=== PATIENT | female | born 1985 | race American Indian/Alaskan Native ===

== ENCOUNTER 2018-04-20 14:20 | Inpatient (IN) | payer MEDICAID ==
--- NOTE | 2018-04-20 16:00 | Emergency Department Report ---
Chief Complaint: Urogenital-Female Stated Complaint: LEAKING FLUID Time Seen by Provider: 04/20/18 15:55 - HPI History of Present Illness: 32-year-old female presents to the emergency department with a complaint of some leaking of fluid from the vagina while . The patient is about [address] 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 She says she was taking a shower when she noticed some of the fluid leaking. When she was sitting on the toilet she felt like there was more fluid than there was urine. She has some mild abdominal discomfort. No fever, nausea, vomiting. She denies any gross vaginal bleeding but says that she thought there was a tinge of blood to the vaginal fluid. - ROS Review of Systems: Positive for abdominal discomfort, leaking vaginal fluid and questionable bleeding Negative for fever, nausea, vomiting, back pain, dysuria, vaginal discharge - Exam Vital Signs: Vital Signs 04/20/18 14:45 Temperature 99 F Pulse Rate 76 Respiratory 18 Rate Blood Pressure 137/83 O2 Sat by Pulse 100 Oximetry Physical Exam: Patient is awake and alert and in no acute distress. No tenderness to palpation of the abdomen. MSE screening note: Focused history and physical exam performed. Due to findings the following was ordered: She will have a CBC, BMP, type and screen for RhoGAM, urinalysis and a ultrasound. ED Disposition for MSE Condition: Stable Referrals: RANDI LANDRUM MD [Primary Care Provider] - 3-5 Days
[2018-04-20 16:48] LABS: Basophils % (Auto) 0.2 % (0.0-1.8); Eosinophils # (Auto) 0.1 K/mm3 (0.0-0.4); Eosinophils % (Auto) 0.6 % (0.0-4.3); Hematocrit 32.2 % (30.3-42.9); Hemoglobin 10.6 gm/dl (10.1-14.3); Lymphocytes # (Auto) 1.9 K/mm3 (1.2-5.4); Mean Corpuscular HGB Conc 33 % (30-34); Mean Corpuscular Hemoglobin 27 pg (28-32); Mean Corpuscular Volume 83 fl (79-97); Monocytes # (Auto) 0.6 K/mm3 (0.0-0.8); Platelet Count 203 K/mm3 (140-440); Red Blood Count 3.86 M/mm3 (3.65-5.03); Red Cell Distribution Width 18.3 % (13.2-15.2)
[2018-04-20 16:54] LABS: BUN/Creatinine Ratio 10; Blood Urea Nitrogen 4 mg/dL (7-17); Calcium 9.3 mg/dL (8.4-10.2); Hemolysis Index 0
[2018-04-20 16:54] LABS: Bacteria,Urine 1+ /HPF (Negative); Bilirubin,Urine NEG (Negative); Blood,Urine MOD (Negative); Color,Urine Yellow (Yellow); Protein,Urine <15 mg/dL mg/dL (Negative); Urobilinogen,Urine < 2.0 mg/dL (<2.0); WBC,Urine < 1.0 /HPF (0.0-6.0)
[2018-04-20 16:57] LABS: HCG Qualitative,Urine Positive (Negative)
--- NOTE | 2018-04-20 18:01 | Ultrasound Report ---
FINAL REPORT EXAM: US OB > = 14 WEEKS FETUS HISTORY: abd pain, , leaking vaginal fluid TECHNIQUE: Ultrasound obstetrical transabdominal PRIORS: None. FINDINGS: There is severe oligohydramnios. Essentially no amniotic fluid identified There is single live intrauterine gestation with cardiac activity 159 beats per minute. Cervical length is 0.5 centimeters The placenta is posterior. biometric measurements were obtained Biparietal diameter 17 weeks 3 days Head circumference 18 weeks 5 days abdominal circumference 18 weeks 2 days Femur length 18 weeks 2 days Based on today's exam estimated weight is 234 grams. Estimated composite gestational age 18 weeks 1 day with estimated date of delivery September 20, 2018 Multiple uterine fibroids are noted largest 5.5 centimeters IMPRESSION: Severe oligohydramnios. Essentially no amniotic fluid identified Single live intrauterine gestation estimated at 18 weeks 1 day Multiple uterine fibroids noted
--- NOTE | 2018-04-20 19:02 | Emergency Department Report ---
HPI - General Chief Complaint: Urogenital-Female Time Seen by Provider: 04/20/18 15:55 - HPI HPI: 32-year-old female presents to the emergency department with a complaint of some leaking of fluid from the vagina while . 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 She says she was taking a shower when she noticed some of the fluid leaking. When she was sitting on the toilet she felt like there was more fluid than there was urine. She has some mild abdominal discomfort. No fever, nausea, vomiting. She denies any gross vaginal bleeding but says that she thought there was a tinge of blood to the vaginal fluid. ED Past Medical Hx - Past Medical History Previous Medical History?: Yes Additional medical history: uterine fibroids - Surgical History Past Surgical History?: Yes Additional Surgical History: , D&C - Social History Smoking Status: Never Smoker Substance Use Type: None ED Review of Systems ROS: Stated complaint: LEAKING FLUID Other details as noted in HPI Comment: All other systems reviewed and negative Constitutional: denies: chills, fever Eyes: denies: eye pain, eye discharge, vision change ENT: denies: ear pain, throat pain Respiratory: denies: cough, shortness of breath, wheezing Cardiovascular: denies: chest pain, palpitations Gastrointestinal: abdominal pain. denies: vomiting Genitourinary: other (vaginal leakage of clear fluid). denies: dysuria Musculoskeletal: denies: back pain, joint swelling, arthralgia Skin: denies: rash, lesions Neurological: denies: headache, weakness, paresthesias Physical Exam - Physical Exam Vital Signs: Vital Signs 04/20/18 14:45 Temperature 99 F Pulse Rate 76 Respiratory 18 Rate Blood Pressure 137/83 O2 Sat by Pulse 100 Oximetry Physical Exam: GENERAL: The patient is well-developed well-nourished. HENT: Normocephalic. Atraumatic. Patient has moist mucous membranes. EYES: Extraocular motions are intact. NECK: Supple. Trachea is midline. CHEST/LUNGS: Clear to auscultation. There is no respiratory distress noted. HEART/CARDIOVASCULAR: Regular. There is no tachycardia. There is no murmur. ABDOMEN: Abdomen is soft, nontender. Patient has normal bowel sounds. Gravid uterus is palpable in the lower abdomen. SKIN: Skin is warm and dry. NEURO: The patient is awake, alert, and oriented. The patient is cooperative. The patient has no focal neurologic deficits. The patient has normal speech. MUSCULOSKELETAL: There is no tenderness or deformity. There is no limitation range of motion. There is no evidence of acute injury. ED Course Vital Signs 04/20/18 14:45 Temperature 99 F Pulse Rate 76 Respiratory 18 Rate Blood Pressure 137/83 O2 Sat by Pulse 100 Oximetry - Consultations Consultation #1: 04/20/18 19:[address] Burden, who is on-call for Dr. Mccarthy, regarding the patient's ultrasound findings of oligohydramnios. She came and saw the patient in the emergency department. At first the patient had decided that she would rather be discharged home and face a miscarriage at home. However she started having abdominal and back pain and changed her mind and Dr. Burden will admit her to mother baby where they will most likely induce the miscarriage. 04/20/18 19:10 ED Medical Decision Making - Lab Data Result diagrams: 04/20/18 16:24 04/20/18 16:24 - Radiology Data Radiology results: report reviewed EXAM: US OB gt; = 14 WEEKS FETUS HISTORY: abd pain, , leaking vaginal fluid TECHNIQUE: Ultrasound obstetrical transabdominal PRIORS: None. FINDINGS: There is severe oligohydramnios. Essentially no amniotic fluid identified There is single live intrauterine gestation with cardiac activity 159 beats per minute. Cervical length is 0.5 centimeters The placenta is posterior. biometric measurements were obtained Biparietal diameter 17 weeks 3 days Head circumference 18 weeks 5 days abdominal circumference 18 weeks 2 days Femur length 18 weeks 2 days Based on today's exam estimated weight is 234 grams. Estimated composite gestational age 18 weeks 1 day with estimated date of delivery September 20, 2018 Multiple uterine fibroids are noted largest 5.5 centimeters IMPRESSION: Severe oligohydramnios. Essentially no amniotic fluid identified Single live intrauterine gestation estimated at 18 weeks 1 day Multiple uterine fibroids noted Transcribed By: KRIS Dictated By: FRANCISCA PEREZ MD Electronically Authenticated By: FRANCISCA PEREZ MD Signed Date/Time: 04/20/18 3640 - Medical Decision Making Patient came in with complaint of leaking clear fluid and she felt as if her water had broken, although all about 18 weeks . Labs were unremarkable. However the ultrasound does show oligohydramnios. She was seen by the [facility] S[facility] service in the emergency department. The patient at first wanted to be discharged home but then changed her mind and will be admitted to the OB/ [facility] service. - Differential Diagnosis , threatened miscarriage, spontaneous miscarriage, fibroids Critical Care Time: No Critical care attestation.: If time is entered above; I have spent that time in minutes in the direct care of this critically ill patient, excluding procedure time. ED Disposition Clinical Impression: Threatened Oligohydramnios Qualifiers: Fetus number: single or unspecified fetus Trimester: second trimester Qualified Code(s): O41.02X0 - Oligohydramnios, second trimester, not applicable or unspecified Qualifiers: Weeks of gestation: 14 weeks Qualified Code(s): Z3A.14 - 14 weeks gestation of Disposition: OP ADMIT IP TO THIS HOSP Is pt being admited?: Yes Condition: Fair Instructions: Threatened Miscarriage (ED), Uterine Fibroids (ED) Referrals: RANDI LANDRUM MD [Primary Care Provider] - 3-5 Days Time of Disposition: 19:03
--- NOTE | 2018-04-20 19:03 | Event Note ---
Date: 04/20/18 This is a 32-year-old female 7 para 4, ANDER 09/17/2018 which places her estimated gestational age at 18 weeks 4 days. Her gestational age is based on a seven-week crown-rump length performed in our office on 02/04/2018. She presented to the emergency room complaining of leaking fluid. She denies bleeding, pain, contractions fever or chills. Abdomen is nontender. Speculum exam revealed fluid in the vagina, cervix appears closed and long. Ultrasounds consistent with patient's history and exam. Patient's is significant for advanced maternal age at the time of delivery, uterine fibroids and recently she completed second trimester genetic screening that revealed the fetus may be at increased risk for Down syndrome. Options reviewed patient initially desired discharge home with follow-up with the day habilitation specialist that was scheduled for Sunday. However while preparing discharge instructions received a call from Dr. Charles stating patient is now having severe pain and desires admission and delivery.
[2018-04-20] MEDS ORDERED: MINERAL OIL PO PRN (19:11)
[2018-04-20] MEDS ORDERED: ePHEDrine SULFATE IV PRN (19:11)
[2018-04-20] MEDS ORDERED: BRETHINE IVP PRN (19:11)
[2018-04-20] MEDS ORDERED: BRETHINE SUB-Q PRN (20:00)
[2018-04-20] MEDS ORDERED: LACTATED RINGERS 1,000 ML IV SCH (20:00)
[2018-04-20] MEDS ORDERED: XYLOCAINE 2% INFILTRATI ONE (20:00)
[2018-04-20] MEDS ORDERED: CYTOTEC VG ONE (20:00)
[2018-04-20] MEDS ORDERED: PITOCin/NS 20 UNIT/1000ML DRIP 20 UNITS/1,000 ML BAG IV SCH (20:00)
--- NOTE | 2018-04-20 23:28 | History and Physical Report ---
History of Present Illness Date of examination: 04/20/18 Date of admission: 04/20/18 19:11 History of present illness: Past History : 7 # 1 Delivery date: 2001 Weeks Gestation: 8 Delivery type: SAB Comments: D&C don3 # 2 Delivery date: 11/20/2002 Weeks Gestation: 35 labor: no Delivery type: Hours of labor: 18 Anesthesia type: epidural Delivery location: [place] Sex: Female weight: 5-13 Name: Chandlershani Comments: Labor induction for pre-eclampsia # 3 Delivery date: 11/12/2003 Weeks Gestation: 37 labor: no Delivery type: Hours of labor: 8 Anesthesia type: IV Delivery location: [place] Infant Sex: Male weight: 6-13 Name: Luiz # 4 Delivery date: 10/09/2005 Weeks Gestation: 38 labor: no Delivery type: Hours of labor: 8 Anesthesia type: epidural Delivery location: [place] Sex: Male weight: 6-9 Name: Radha # 5 Delivery date: 2007 Weeks Gestation: 4-6 Delivery type: SAB Comments: No D&C # 6 Delivery date: 08/31/2009 Weeks Gestation: 37 Delivery type: Anesthesia type: epidural Delivery location: [place] Infant Sex: Male weight: 6-7 Name: Eliot Comments: Failed induction pre-eclampsia Failure of descent 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 Past Surgical History: (2008) Family History Summary: Other family member - Has No Family History of Ovarvian Cancer - Entered On: 02/04 Other family member - Has No Family History of Breast Cancer - Entered On: 2017 Other family member - Has Family History of Hypertension - Entered On: 02/04/2018 Other family member - Has Family History of Diabetes - Entered On: 02/04/2018 Other family member - Has Family History of CVA or Stroke - Entered On: 02/04/2018 Other family member - Has Family History of Coronary Heart Disease - Entered On : 02/04/2018 Other family member - Has Family History Colon Cancer - Entered On: 02/04/2018 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 Risk Factors: Smoked Tobacco Use: Current every day smoker Cigarettes: Yes -- 1/2 pack(s) per day, Year started: 1999 Counseled to quit/cut down: yes Drug use: no Alcohol use: yes Drinks per day: 1 Dietary Counseling: pn yes Past Medical History 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): (2008) Abnormal PAP: positive, cxbx normal Uterine Anomaly: negative Social Hx: 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 Infection History Hx of STD: Trichomonas Genetic History Congenital Heart Defect: Mom: yes Dad: no Comments: nephew Daisha Disease: Mom: no Dad: no Thalassemia Mom: no Dad: no Neural Tube Defect Mom: no Dad: no Down's Syndrome Mom: yes Dad: no Pastor-Sachs Mom: no Dad: no Sickle Cell Disease/Trait Mom: yes Dad: no Hemophilia Mom: no Dad: no Muscular Dystrophy Mom: no Dad: no Cystic Fibrosis Mom: no Dad: no [place] Chorea Mom: no Dad: no Mental Retardation Mom: no Dad: no Fragile X Mom: no Dad: no Other Genetic/Chromosomal Disorder Mom: no Dad: no Child w/other defect Mom: no Dad: no Enviromental Exposures Xray Exposure: no Medication, drug, or alcohol use since LMP: no Chemical/Other Exposure: no Exposure to Cat Liter: no Hx of Parvovirus (Fifth Disease): no Current Allergies (reviewed today): * CATS (Critical) * MOLDS (Critical) LORTAB (HYDROCODONE-ACETAMINOPHEN TABS) (Critical) * DOGS (Critical) Past History - Obstetrical History Expected Date of Delivery: 09/17/18 Actual Gestation: 18 Week(s) 4 Day(s) : 7 Medications and Allergies Allergies Allergy/AdvReac Type Severity Reaction Status Date / Time No Known Allergies Allergy Unverified 04/20/18 18:08 Home Medications Medication Instructions Recorded Confirmed Last Taken Type Aspirin [Aspir-Low] 81 mg PO DAILY 04/20/18 04/20/18 1 Day Ago History ~04/19/18 Vit No.130/Iron/Folic 1 each PO DAILY 04/20/18 04/20/18 1 Day Ago History [ Tablet] ~04/19/18 Active Meds: Active Medications Ephedrine Sulfate (Ephedrine Sulfate) 10 mg IV Q2M PRN PRN Reason: Hypotension Lactated Ringer's (Lactated Ringers) 1,000 mls @ 125 mls/hr IV DIRECT NENITA Oxytocin/Sodium Chloride (Pitocin/Ns 20 Unit/1000ml Drip) 20 units in 1,000 mls @ 125 mls/hr IV DIRECT NENITA Mineral Oil (Mineral Oil) 30 ml PO QHS PRN PRN Reason: Constipation Terbutaline Sulfate (Brethine) 0.25 mg SUB-Q ONCE PRN PRN Reason: Hyperstimulation/Hypertonicity Terbutaline Sulfate (Brethine) 0.25 mg IVP ONCE PRN PRN Reason: Hyperstimulation/Hypertonicity Review of Systems All systems: negative Genitourinary: leakage of fluid - Vital Signs Vital signs: Vital Signs Temp Pulse Resp BP Pulse Ox 99 F 76 18 137/83 100 04/20/18 14:45 04/20/18 14:45 04/20/18 14:45 04/20/18 14:45 04/20/18 14:45 Temp Pulse Resp BP Pulse Ox 97.8 F 67 20 132/71 100 04/20/18 21:30 04/20/18 21:55 04/20/18 21:30 04/20/18 21:52 04/20/18 21:55 - Physical Exam Breasts: Positive: deferred Cardiovascular: Regular rate Lungs: Positive: Normal air movement Abdomen: Positive: normal appearance, soft. Negative: tenderness Genitourinary (Female): Positive: normal external genitalia, normal perenium Vulva: both: normal Extremities: Positive: normal - Obstetrical Cervical Dilatation: 1 Results Result Diagrams: 04/20/18 16:24 04/20/18 16:24 Abnormal lab results 04/20/18 04/20/18 04/20/18 Range/Units 16:04 16:24 16:24 MCH 27 L (28-32) pg RDW 18.3 H (13.2-15.2) % Seg Neutrophils % 74.2 H (40.0-70.0) % BUN 4 L (7-17) mg/dL Creatinine 0.4 L (0.7-1.2) mg/dL Urine HCG, Qual Positive A (Negative) All other labs normal. Ultrasound: report reviewed, image reviewed Assessment and Plan She was informed at this EGA the fetus is not viable. It is rare that with ROM at this EGA that GRABIEL will normalize and she will mostly become infected in the next 1-2weeks, Options again discussed, risks for maternal infection with observation explained. She was informed the fibroid in the AJIT may obstruct delivery. She was informed D&E is not performed at this facility and she would need to go to [place] or [place] if she desires that procedure. She desires observation tonight with reUS for GRABIEL in AM. Will also recheck CBC in am as well. - Patient Problems (1) 18 weeks gestation of Current Visit: Yes Status: Acute (2) membranes, rupture Current Visit: Yes Status: Acute (3) Oligohydramnios Current Visit: Yes Status: Acute Qualifiers: Fetus number: single or unspecified fetus Trimester: second trimester Qualified Code(s): O41.02X0 - Oligohydramnios, second trimester, not applicable or unspecified (4) Uterine fibroids affecting in second trimester Current Visit: Yes Status: Acute (5) Cystic fibrosis carrier Current Visit: Yes Status: Acute (6) Abnormal genetic test during Current Visit: Yes Status: Acute Plan to address problem: Quad +for increased risk for Down syndrome, she was informed today
--- NOTE | 2018-04-21 07:08 | Ultrasound Report ---
FINAL REPORT PROCEDURE: US OB LIMITED TECHNIQUE: Real-time limited sonographic examination was performed for evaluation of amniotic fluid for each fetus with image documentation (1 or more fetuses). CPT 46283 HISTORY: GRABIEL COMPARISON: 04/20/2018 FINDINGS: There is a single fetus in a transverse position. heart rate 149 beats per minute. No amniotic fluid is identified on this study. This is consistent with severe oligohydramnios. IMPRESSION: No measurable amniotic fluid is seen on this study. This is consistent with severe oligohydramnios and has not changed since prior exam.
[2018-04-21 07:54] LABS: Basophils % (Auto) 0.2 % (0.0-1.8); Eosinophils # (Auto) 0.1 K/mm3 (0.0-0.4); Eosinophils % (Auto) 0.8 % (0.0-4.3); Hematocrit 31.7 % (30.3-42.9); Hemoglobin 10.5 gm/dl (10.1-14.3); Lymphocytes % (Auto) 20.1 % (13.4-35.0); Mean Corpuscular HGB Conc 33 % (30-34); Mean Corpuscular Hemoglobin 28 pg (28-32); Mean Corpuscular Volume 84 fl (79-97); Monocytes # (Auto) 0.7 K/mm3 (0.0-0.8); Monocytes % (Auto) 6.6 % (0.0-7.3); Platelet Count 194 K/mm3 (140-440); Red Blood Count 3.78 M/mm3 (3.65-5.03); Red Cell Distribution Width 18.4 % (13.2-15.2)
--- NOTE | 2018-04-21 10:48 | Progress Note ---
Assessment and Plan - Patient Problems (1) 18 weeks gestation of Current Visit: Yes Status: Acute (2) membranes, rupture Current Visit: Yes Status: Acute Plan to address problem: Inevitable AB. US and CBC reviewed with patient. Discussed minimal chance of progressing to viability/survivability with no fluid. Explained fluid is need to mature lungs and mostly likely she will develop an infection that could be fatal and decrease her fertility. No s/s infection at this time, however she now desires w/ proceed with delivery. She was informed induction may fail d/t fibroids and she may require hysterotomy. She declines referral for D&E at this time. Cytotec induction explained. Questions were encouraged and answered. Will allow shower then start induction. She voiced understanding and agrees with plan of care. (3) Oligohydramnios Current Visit: Yes Status: Acute Qualifiers: Fetus number: single or unspecified fetus Trimester: second trimester Qualified Code(s): O41.02X0 - Oligohydramnios, second trimester, not applicable or unspecified (4) Uterine fibroids affecting in second trimester Current Visit: Yes Status: Acute (5) Cystic fibrosis carrier Current Visit: Yes Status: Acute (6) Abnormal genetic test during Current Visit: Yes Status: Acute (7) AMA (advanced maternal age) multigravida 35+ Current Visit: Yes Status: Acute Subjective - Subjective Date of service: 04/21/18 Principal diagnosis: IUP@18weeks, inevitable ab Interval history: No complaints Patient reports: no new complaints Objective - Vital Signs Vital Signs: Vital Signs - 12hr 04/21/18 04/21/18 04/21/18 00:15 04:15 06:15 Temperature 98.9 F 98.6 F 98.8 F Pulse Rate 94 H Respiratory 18 Rate Blood Pressure Blood Pressure 129/86 [Left] 04/21/18 04/21/18 04/21/18 07:35 09:32 09:35 Temperature 98.9 F 98.3 F Pulse Rate 80 Respiratory 18 18 Rate Blood Pressure 123/65 Blood Pressure [Left] - Exam Breasts: deferred Lungs: Normal air movement Abdomen: Present: normal appearance (obese), soft. Absent: tenderness Vulva: both: normal Cervical Dilatation: 1 Cervical Effacement Percentage: 0 station: -4 - Labs Labs: Abnormal Labs 04/20/18 04/20/18 04/20/18 16:04 16:24 16:24 MCH 27 L RDW 18.3 H Seg Neutrophils % 74.2 H BUN 4 L Creatinine 0.4 L Urine HCG, Qual Positive A 04/21/18 07:10 MCH RDW 18.4 H Seg Neutrophils % 72.3 H BUN Creatinine Urine HCG, Qual Laboratory Results - last 24 hr 04/20/18 04/20/18 04/20/18 16:04 16:24 16:24 WBC 9.8 RBC 3.86 Hgb 10.6 Hct 32.2 MCV 83 MCH 27 L MCHC 33 RDW 18.3 H Plt Count 203 Lymph % (Auto) 19.0 Mcdonald % (Auto) 6.0 Eos % (Auto) 0.6 Baso % (Auto) 0.2 Lymph # 1.9 Mcdonald # 0.6 Eos # 0.1 Baso # 0.0 Seg Neutrophils % 74.2 H Seg Neutrophils # 7.3 Sodium 141 Potassium 3.9 Chloride 100.4 Carbon Dioxide 27 Anion Gap 18 BUN 4 L Creatinine 0.4 L Estimated GFR > 60 BUN/Creatinine Ratio 10 Glucose 89 Calcium 9.3 Urine Color Yellow Urine Turbidity Clear Urine pH 7.0 Ur Specific [place] 1.005 Urine Protein <15 mg/dl Urine Glucose (UA) Neg Urine Ketones Neg Urine Blood Mod Urine Nitrite Neg Urine Bilirubin Neg Urine Urobilinogen < 2.0 Ur Leukocyte Esterase Neg Urine WBC (Auto) < 1.0 Urine RBC (Auto) 1.0 U Epithel Cells (Auto) 1.0 Urine Bacteria (Auto) 1+ Urine HCG, Qual Positive A Blood Type Antibody Screen 04/20/18 04/21/18 16:24 07:10 WBC 10.0 RBC 3.78 Hgb 10.5 Hct 31.7 MCV 84 MCH 28 MCHC 33 RDW 18.4 H Plt Count 194 Lymph % (Auto) 20.1 Mcdonald % (Auto) 6.6 Eos % (Auto) 0.8 Baso % (Auto) 0.2 Lymph # 2.0 Mcdonald # 0.7 Eos # 0.1 Baso # 0.0 Seg Neutrophils % 72.3 H Seg Neutrophils # 7.2 Sodium Potassium Chloride Carbon Dioxide Anion Gap BUN Creatinine Estimated GFR BUN/Creatinine Ratio Glucose Calcium Urine Color Urine Turbidity Urine pH Ur Specific [place] Urine Protein Urine Glucose (UA) Urine Ketones Urine Blood Urine Nitrite Urine Bilirubin Urine Urobilinogen Ur Leukocyte Esterase Urine WBC (Auto) Urine RBC (Auto) U Epithel Cells (Auto) Urine Bacteria (Auto) Urine HCG, Qual Blood Type O POSITIVE Antibody Screen Negative
[2018-04-21] MEDS ORDERED: NUBAIN IV PRN (11:15)
[2018-04-21] MEDS ORDERED: NARCAN 0.4 MG/1 ML IV PRN (11:15)
[2018-04-21] MEDS ORDERED: PHENERGAN PO PRN (11:15)
[2018-04-21] MEDS ORDERED: ZOFRAN IV PRN (11:15)
[2018-04-21] MEDS ORDERED: ePHEDrine SULFATE IV PRN (11:15)
[2018-04-21] MEDS ORDERED: PHENERGAN PR PRN (11:15)
--- NOTE | 2018-04-21 11:43 | Event Note ---
Date: 04/21/18 Cytotec 400mcg placed vaginally without difficulty
[2018-04-21] MEDS ORDERED: CYTOTEC VG ONE (12:00)
[2018-04-21] MEDS ORDERED: PITOCin/NS 20 UNIT/1000ML DRIP 20 UNITS/1,000 ML BAG IV SCH (12:00)
[2018-04-21] MEDS ORDERED: LACTATED RINGERS 1,000 ML IV SCH (12:00)
[2018-04-21] MEDS: STADOL IV PRN ×2 (14:09→17:09)
[2018-04-21] MEDS: SUBLIMAZE IV PRN ×2 (15:20→17:01)
--- NOTE | 2018-04-21 15:48 | Event Note ---
Date: 04/21/18 On arrival, body and left arm were delivered. She was given Stadol 2mg just prior to my arrival. Patient complained of pain and was actively pushing. With gently manipulation and patient pushing the shoulders and right arm delivered. Cervix feels to be contracted around the neck. Again attempted reduce the cervix with pushing however she was unable to tolerate this maneuver. Fentanyl given and pitocin bolus started. Patient now resting. Anesthesia aware. Will reassess in 1hour.
[2018-04-21] MEDS ORDERED: CYTOTEC VG SCH (16:00)
--- NOTE | 2018-04-21 16:37 | Procedure Note ---
OB Delivery Note - Delivery Date of Delivery: 04/21/18 - Vaginal Delivery presentation: breech Intrapartum events: PROM->1hr before delivery, other(please specify) (Head spontaneously delivered with fentanyl and pitocin bolus, cord doubly clamped and cut, baby given to mother. Will continue pitocin and observe for now. ) Delivery induction: misoprostol Delivery augmentation: pitocin Route of delivery: Delivery placenta: other Episiotomy: none Delivery laceration: none Anesthesia: intravenous - Infant A at 1 minute: 0 at 5 minutes: 0 Infant Gender: Male
--- NOTE | 2018-04-21 17:35 | Procedure Note ---
OB Delivery Note - Delivery Date of Delivery: 04/21/18 Surgeon: CELSA BAUM Estimated blood loss: 300cc - Vaginal Delivery placenta: spontaneous (Appears intact, no bleeding)
[2018-04-21] MEDS: TORADOL IV PRN (20:33)
[2018-04-21] MEDS ORDERED: MINERAL OIL PO PRN (22:00)
[2018-04-22] MEDS: TORADOL IV PRN (06:26)
--- NOTE | 2018-04-22 06:28 | Discharge Summary ---
Providers - Providers Date of Admission: 04/20/18 19:11 Date of discharge: 04/22/18 (pt desires d/c today) Attending physician: CELSA BAUM Primary care physician: RANDI LANDRUM Hospitalization Reason for admission: section, rupture of membranes Episiotomy: none Laceration: none Other procedures: none complications: none Discharge diagnosis: intrapartum demise [place] baby: male Condition at discharge: Good Disposition: DC-01 TO HOME OR SELFCARE - Discharge Diagnoses (1) Vaginal delivery Status: Acute Comment: RTO 4 weeks for PP care (2) demise Status: Acute Plan - Provider Discharge Summary Activity: routine, no sex for 6 weeks, no heavy lifting 4 weeks, no strenuous exercise Diet: routine Instructions: routine Additional instructions: [] Smoking cessation referral if applicable(refer to patient education folder for contact #) [] Refer to [facility] Booklet Call your doctor immediately for: * Fever > 100.5 * Heavy vaginal bleeding ( >1 pad per hour) * Severe persistent headache * Shortness of breath * Reddened, hot, painful area to leg or breast * Drainage or odor from incision. * Keep incision clean and dry at all times and follow doctor's instructions regarding bathing/showering - Follow up plan Follow up: RANDI LANDRUM MD [Primary Care Provider] - 3-5 Days GENARO CERNA CNM [Advanced Practice Nurse] - 05/21/18 (Please call [phone] to schedule your appointment in 4 weeks. Take medication as prescribed. Call with any concerns.)
[2018-04-22 09:52] VITALS: BP 143/71
== END 2018-04-22 10:05 | disposition home or self-care (01) | DRG 775 ==
LOC: ED 14:20 → LD 19:11 → OB 04-21 20:13
PROVIDERS: ADMIT Obstetrics & Gynecology; ATTEND Obstetrics & Gynecology
PROC: 10E0XZZ Delivery of Products of Conception, External Approach (ICD-10-PCS; principal; 2018-04-21)
PROC: 3E0P7VZ Introduction of Hormone into Female Reproductive, Via Natural or Artificial Opening (ICD-10-PCS; 2018-04-21)
DX: O36.4XX0 Maternal care for intrauterine death, not applicable or unspecified (principal); O41.02X0 Oligohydramnios, second trimester, not applicable or unspecified; O34.12 Maternal care for benign tumor of corpus uteri, second trimester; D25.9 Leiomyoma of uterus, unspecified; O60.13X0 Preterm labor second trimester with preterm delivery third trimester, not applicable or unspecified; F17.200 Nicotine dependence, unspecified, uncomplicated; O42.912 Preterm premature rupture of membranes, unspecified as to length of time between rupture and onset of labor, second trimester; Z82.49 Family history of ischemic heart disease and other diseases of the circulatory system; Z82.3 Family history of stroke; Z3A.18 18 weeks gestation of pregnancy; Z37.1 Single stillbirth; Z83.3 Family history of diabetes mellitus; Z80.8 Family history of malignant neoplasm of other organs or systems; Z71.6 Tobacco abuse counseling; O35.1XX0 Maternal care for (suspected) chromosomal abnormality in fetus, not applicable or unspecified
CPT/HCPCS: 36415; 76805; 76815; 80048; 81001; 81025; 85025; 86850; 86900; 86901; 88305; J0595; J1885; J2590; J3010; J7120

== ENCOUNTER 2019-12-28 09:52 | Emergency (ER) | payer MEDICAID ==
--- NOTE | 2019-12-28 12:14 | Event Note ---
ED Screening Note ED Screening Note: pt presents with a sore throat that began this morning states she has body aches +diarrhea no vomiting no nausea no fever states she also has right ear pain no sick contacts PMHx childhood seizures, fibroids allergy: PCN-rash LNMP: 11/28/19 This initial assessment/diagnostic orders/clinical plan/treatment(s) is/are subject to change based on patients health status, clinical progression and re- assessment by fellow clinical providers in the ED. Further treatment and workup at subsequent clinical providers discretion. Patient/guardian urged not to elope from the ED as their condition may be serious if not clinically assessed and managed. Initial orders include: rapid strep and flu
--- NOTE | 2019-12-28 14:02 | Emergency Department Report ---
- General Chief Complaint: Sore Throat Stated Complaint: V/DIARRHEA,HEADACHE Time Seen by Provider: 12/28/19 12:08 Source: patient Mode of arrival: Ambulatory Limitations: No Limitations - History of Present Illness Initial Comments: This is a 34-year-old female nontoxic, well nourished in appearance, no acute signs of distress presents to the ED with c/o of body aches, rhinorrhea, nasal congestion and sore throat with frontal sinus pain x2 days. Patient also stated had one episode of diarrhea. Patient describes productive cough as yellow mucus production. Patient denies any sick contacts. Patient denies any recent travels, long car, recent hospital stays. Patient denies any calf pain or calf tenderness. Patient denies any chest pain, short of breath, fever, chills, nausea, vomiting, hemoptysis, numbness, tingling, headache or stiff neck. Patient stated allergies to penicillin. MD Complaint: sore throat, rhinorrhea, nasal congestion, sinus pain -: days(s) (2) Severity: mild Severity scale (0 -10): 8 Quality: aching Consistency: constant Improves With: nothing Worsens With: nothing Associated Symptoms: rhinorrhea, nasal congestion, sore throat, diarrhea, other (sinus pain). denies: fever, chills, myalgias, diaphoresis, headache, stiff neck, cough, chest pain, shortness of breath, abdominal pain, nausea, vomiting, dysuria, rash, confusion, right sweats, weight loss, epistaxis, hoarseness, ear pain - Related Data Home Medications Medication Instructions Recorded Confirmed Last Taken Aspirin [Aspir-Low] 81 mg PO DAILY 04/20/18 04/20/18 1 Day Ago ~04/19/18 Vit No.130/Iron/Folic 1 each PO DAILY 04/20/18 04/20/18 1 Day Ago [ Tablet] ~04/19/18 Previous Rx's Medication Instructions Recorded Last Taken Type Ibuprofen [Motrin 800 MG tab] 800 mg PO TID PRN #30 tablet 04/22/18 Unknown Rx Azithromycin [Zithromax Z-ROSETTA] 250 mg PO DAILY #6 tablet 12/28/19 Unknown Rx Allergies Allergy/AdvReac Type Severity Reaction Status Date / Time Penicillins Allergy Rash Verified 12/28/19 12:15 ED Review of Systems ROS: Stated complaint: V/DIARRHEA,HEADACHE Other details as noted in HPI Constitutional: denies: chills, fever Eyes: denies: eye pain, eye discharge, vision change ENT: congestion. denies: ear pain, throat pain Respiratory: denies: cough, shortness of breath, wheezing Cardiovascular: denies: chest pain, palpitations Endocrine: no symptoms reported Gastrointestinal: denies: abdominal pain, nausea, diarrhea Genitourinary: denies: urgency, dysuria, discharge Musculoskeletal: denies: back pain, joint swelling, arthralgia Skin: denies: rash, lesions Neurological: denies: headache, weakness, paresthesias Psychiatric: denies: anxiety, depression Hematological/Lymphatic: denies: easy bleeding, easy bruising ED Past Medical Hx - Past Medical History Previous Medical History?: Yes Hx Hypertension: No Hx Congestive Heart Failure: No Hx Diabetes: No Hx Deep Vein Thrombosis: No Hx Renal Disease: No Hx Sickle Cell Disease: No Hx Seizures: Yes (childhood) Hx Asthma: No Hx COPD: No Hx HIV: No Additional medical history: Uterine fibroids - Surgical History Past Surgical History?: Yes Additional Surgical History: , D&C - Social History Smoking Status: Former Smoker - Medications Home Medications: Home Medications Medication Instructions Recorded Confirmed Last Taken Type Aspirin [Aspir-Low] 81 mg PO DAILY 04/20/18 04/20/18 1 Day Ago History ~04/19/18 Vit No.130/Iron/Folic 1 each PO DAILY 04/20/18 04/20/18 1 Day Ago History [ Tablet] ~04/19/18 Ibuprofen [Motrin 800 MG tab] 800 mg PO TID PRN #30 tablet 04/22/18 Unknown Rx Azithromycin [Zithromax Z-ROSETTA] 250 mg PO DAILY #6 tablet 12/28/19 Unknown Rx ED Physical Exam - General Limitations: No Limitations General appearance: alert, in no apparent distress - Head Head exam: Present: atraumatic, normocephalic - Expanded ENT Exam Expanded Ear exam: Present: normal external inspection Mouth exam: Present: normal external inspection, tongue normal. Absent: drooling, trismus, muffled voice Teeth exam: Present: normal inspection Throat exam: Positive: tonsillar erythema, other (uvula midline). Negative: tonsillomegaly, tonsillar exudate, R peritonsillar mass, L peritonsillar mass - Neck Neck exam: Present: normal inspection, full ROM. Absent: tenderness, meningismus, lymphadenopathy - Respiratory Respiratory exam: Present: normal lung sounds bilaterally. Absent: respiratory distress, wheezes, rales, rhonchi, stridor, chest wall tenderness, accessory muscle use, decreased breath sounds, prolonged expiratory - Cardiovascular Cardiovascular Exam: Present: regular rate, normal rhythm, normal heart sounds. Absent: bradycardia, tachycardia, irregular rhythm, systolic murmur, diastolic murmur, rubs, gallop - GI/Abdominal GI/Abdominal exam: Present: soft, normal bowel sounds. Absent: distended, tenderness, guarding, rebound, rigid, diminished bowel sounds - Extremities Exam Extremities exam: Present: full ROM - Back Exam Back exam: Present: full ROM - Neurological Exam Neurological exam: Present: alert, oriented X3, normal gait - Psychiatric Psychiatric exam: Present: normal affect, normal mood - Skin Skin exam: Present: warm, dry, intact, normal color. Absent: rash - Other Other exam information: positive frontal sinus pain ED Course Vital Signs 12/28/19 10:31 Temperature 98.8 F Pulse Rate 67 Respiratory 20 Rate Blood Pressure 127/70 [Right] O2 Sat by Pulse 100 Oximetry - Reevaluation(s) Reevaluation #1: 12/28/19 14:03 Patient is speaking in full sentences with no signs of distress noted. ED Medical Decision Making - Medical Decision Making This is a 34-year-old female that presents with pharyngitis and sinusitis. Patient is stable and was examined by me. Patient be treated with Zpak. Patient was instructed to increase hydration, rest and take Motrin for fever episodes. Vitals stable. Patient is nonfebrile and normal heart rate. Patient was instructed Follow-up with a primary care doctor in 3-5 days or if symptoms worsen and continue return to emergency room as soon as possible. At time time of discharge, the patient does not seem toxic or ill in appearance. No acute signs of distress noted. Patient agrees to discharge treatment plan of care. No further questions noted by the patient. Critical care attestation.: If time is entered above; I have spent that time in minutes in the direct care of this critically ill patient, excluding procedure time. ED Disposition Clinical Impression: Pharyngitis Qualifiers: Pharyngitis/tonsillitis etiology: unspecified etiology Qualified Code(s): J02.9 - Acute pharyngitis, unspecified Sinusitis Qualifiers: Sinusitis location: frontal Chronicity: acute Recurrence: non-recurrent Qualified Code(s): J01.10 - Acute frontal sinusitis, unspecified Disposition: DC-01 TO HOME OR SELFCARE Is pt being admited?: No Does the pt Need Aspirin: No Condition: Stable Instructions: Pharyngitis (ED), Sinusitis (ED) Additional Instructions: Follow-up with a primary care doctor in 3-5 days or if symptoms worsen and continue return to emergency room as soon as possible. Prescriptions: Azithromycin [Zithromax Z-ROSETTA] 250 mg PO DAILY #6 tablet Referrals: DIPTI ROSALES MD [Primary Care Provider] - 3-5 Days PRIMARY CAREMD [Referring] - 3-5 Days SIRI CESPEDES MD [Staff Physician] - 3-5 Days [facility] [Outside] - 3-5 Days Forms: Work/School Release Form(ED)
[2019-12-28 14:20] VITALS: BP 106/62
== END 2019-12-28 14:23 | disposition home or self-care (01) ==
LOC: ED 09:52
DX: J02.9 Acute pharyngitis, unspecified (principal); J32.9 Chronic sinusitis, unspecified; Z79.899 Other long term (current) drug therapy; Z79.82 Long term (current) use of aspirin; Z88.0 Allergy status to penicillin; Z86.69 Personal history of other diseases of the nervous system and sense organs; Z98.890 Other specified postprocedural states; Z87.891 Personal history of nicotine dependence
CPT/HCPCS: 87116; 87400; 87430

== ENCOUNTER 2020-10-10 20:42 | Inpatient (IN) | payer MEDICAID ==
[2020-10-10] MEDS ORDERED: ALUM-MAG HYDROXIDE-SIMETHICONE 200-200-20MG/5ML ORAL LIQD 30 ML PO PRN (21:08)
[2020-10-10] MEDS ORDERED: diphenhydrAMINE 25 MG CAP PO PRN (21:08)
[2020-10-10] MEDS ORDERED: PSEUDOEPHEDRINE 30 MG TAB PO PRN (21:08)
[2020-10-10] MEDS ORDERED: MAGNESIUM HYDROXIDE (MOM) ORAL LIQD UDC PO PRN (21:08)
[2020-10-10] MEDS ORDERED: ONDANSETRON 4 MG/2 ML INJ IV PRN (21:08)
[2020-10-10] MEDS ORDERED: SODIUM CHLORIDE NASAL SPRAY 44ML NS PRN (21:08)
[2020-10-10] MEDS ORDERED: SIMETHICONE 80 MG CHEW TAB PO PRN (21:08)
[2020-10-10 22:55] LABS: Basophils % (Auto) 0.2 % (0.0-1.8); Eosinophils # (Auto) 0.1 K/mm3 (0.0-0.4); Eosinophils % (Auto) 0.6 % (0.0-4.3); Hematocrit 29.6 % (30.3-42.9); Hemoglobin 9.9 gm/dl (10.1-14.3); Lymphocytes % (Auto) 15.8 % (13.4-35.0); Mean Corpuscular HGB Conc 34 % (30-34); Mean Corpuscular Volume 92 fl (79-97); Monocytes # (Auto) 0.6 K/mm3 (0.0-0.8); Monocytes % (Auto) 4.8 % (0.0-7.3); Platelet Count 266 K/mm3 (140-440); Red Blood Count 3.22 M/mm3 (3.65-5.03); Red Cell Distribution Width 14.7 % (13.2-15.2)
--- NOTE | 2020-10-11 07:48 | Progress Note ---
Subjective - Subjective Date of service: 10/11/20 (Pt doing well) Principal diagnosis: IUP @ 24+ wks, mono-mono twins Objective - Vital Signs Vital Signs: Vital Signs - 12hr 10/10/20 10/10/20 10/10/20 21:09 21:30 23:32 Temperature 98.8 F Pulse Rate 100 H 100 H 73 Respiratory 12 Rate Blood Pressure 132/72 Blood Pressure 132/72 [Right] O2 Sat by Pulse 98 Oximetry 10/10/20 10/10/20 10/10/20 23:37 23:42 23:47 Temperature Pulse Rate 70 70 73 Respiratory Rate Blood Pressure Blood Pressure [Right] O2 Sat by Pulse 98 98 99 Oximetry 10/10/20 10/10/20 10/11/20 23:52 23:57 00:02 Temperature Pulse Rate 70 75 72 Respiratory Rate Blood Pressure Blood Pressure [Right] O2 Sat by Pulse 98 99 99 Oximetry 10/11/20 10/11/20 10/11/20 00:07 00:12 00:17 Temperature Pulse Rate 71 72 76 Respiratory Rate Blood Pressure Blood Pressure [Right] O2 Sat by Pulse 100 99 99 Oximetry 10/11/20 10/11/20 10/11/20 00:22 00:27 00:32 Temperature Pulse Rate 71 73 72 Respiratory Rate Blood Pressure Blood Pressure [Right] O2 Sat by Pulse 99 98 100 Oximetry 10/11/20 10/11/20 10/11/20 00:37 00:42 00:47 Temperature Pulse Rate 72 71 73 Respiratory Rate Blood Pressure Blood Pressure [Right] O2 Sat by Pulse 99 99 99 Oximetry 10/11/20 10/11/20 10/11/20 00:52 00:57 01:02 Temperature Pulse Rate 71 73 74 Respiratory Rate Blood Pressure Blood Pressure [Right] O2 Sat by Pulse 99 99 100 Oximetry 10/11/20 10/11/20 10/11/20 01:07 01:12 01:17 Temperature Pulse Rate 77 79 69 Respiratory Rate Blood Pressure Blood Pressure [Right] O2 Sat by Pulse 100 99 100 Oximetry 10/11/20 10/11/20 10/11/20 01:22 01:27 01:32 Temperature Pulse Rate 74 69 75 Respiratory Rate Blood Pressure Blood Pressure [Right] O2 Sat by Pulse 99 100 100 Oximetry 10/11/20 10/11/20 10/11/20 01:37 01:42 01:47 Temperature Pulse Rate 72 67 71 Respiratory Rate Blood Pressure Blood Pressure [Right] O2 Sat by Pulse 99 99 99 Oximetry 10/11/20 10/11/20 10/11/20 01:52 01:57 02:02 Temperature Pulse Rate 70 70 66 Respiratory Rate Blood Pressure Blood Pressure [Right] O2 Sat by Pulse 99 98 99 Oximetry 10/11/20 10/11/20 10/11/20 02:07 02:12 02:17 Temperature Pulse Rate 78 68 67 Respiratory Rate Blood Pressure Blood Pressure [Right] O2 Sat by Pulse 99 99 99 Oximetry 10/11/20 10/11/20 10/11/20 02:22 02:27 02:32 Temperature Pulse Rate 70 70 75 Respiratory Rate Blood Pressure Blood Pressure [Right] O2 Sat by Pulse 99 99 99 Oximetry 10/11/20 10/11/20 10/11/20 02:37 02:42 02:47 Temperature Pulse Rate 67 80 67 Respiratory Rate Blood Pressure Blood Pressure [Right] O2 Sat by Pulse 99 98 98 Oximetry 10/11/20 10/11/20 10/11/20 02:52 02:57 03:02 Temperature Pulse Rate 63 69 66 Respiratory Rate Blood Pressure Blood Pressure [Right] O2 Sat by Pulse 98 98 98 Oximetry 10/11/20 10/11/20 10/11/20 03:07 03:12 03:17 Temperature Pulse Rate 63 71 76 Respiratory Rate Blood Pressure Blood Pressure [Right] O2 Sat by Pulse 99 98 98 Oximetry 10/11/20 10/11/20 10/11/20 03:22 03:27 03:29 Temperature Pulse Rate 85 86 83 Respiratory Rate Blood Pressure Blood Pressure [Right] O2 Sat by Pulse 98 97 94 Oximetry 10/11/20 10/11/20 10/11/20 03:32 03:37 03:42 Temperature Pulse Rate 73 70 69 Respiratory Rate Blood Pressure Blood Pressure [Right] O2 Sat by Pulse 98 98 98 Oximetry 10/11/20 10/11/20 10/11/20 03:47 03:52 03:57 Temperature Pulse Rate 69 67 66 Respiratory Rate Blood Pressure Blood Pressure [Right] O2 Sat by Pulse 98 98 98 Oximetry 10/11/20 10/11/20 10/11/20 04:02 04:07 04:12 Temperature Pulse Rate 66 65 89 Respiratory Rate Blood Pressure Blood Pressure [Right] O2 Sat by Pulse 99 98 97 Oximetry 10/11/20 10/11/20 10/11/20 04:17 04:22 04:27 Temperature Pulse Rate 65 65 63 Respiratory Rate Blood Pressure Blood Pressure [Right] O2 Sat by Pulse 99 100 99 Oximetry 10/11/20 10/11/20 10/11/20 04:32 04:37 04:42 Temperature Pulse Rate 66 87 75 Respiratory Rate Blood Pressure Blood Pressure [Right] O2 Sat by Pulse 99 100 99 Oximetry 10/11/20 10/11/20 10/11/20 04:47 04:52 04:57 Temperature Pulse Rate 67 67 68 Respiratory Rate Blood Pressure Blood Pressure [Right] O2 Sat by Pulse 100 99 100 Oximetry 10/11/20 10/11/20 10/11/20 05:02 05:07 05:12 Temperature Pulse Rate 72 69 65 Respiratory Rate Blood Pressure Blood Pressure [Right] O2 Sat by Pulse 100 100 100 Oximetry 10/11/20 10/11/20 10/11/20 05:17 05:22 05:27 Temperature Pulse Rate 63 82 70 Respiratory Rate Blood Pressure Blood Pressure [Right] O2 Sat by Pulse 100 100 99 Oximetry 10/11/20 10/11/20 10/11/20 05:31 05:37 05:38 Temperature Pulse Rate 100 H 72 Respiratory Rate Blood Pressure Blood Pressure [Right] O2 Sat by Pulse 94 63 L 94 Oximetry 10/11/20 10/11/20 10/11/20 05:43 05:48 05:53 Temperature Pulse Rate 71 66 69 Respiratory Rate Blood Pressure Blood Pressure [Right] O2 Sat by Pulse 99 100 100 Oximetry 10/11/20 10/11/20 10/11/20 05:58 06:03 06:08 Temperature Pulse Rate 71 71 70 Respiratory Rate Blood Pressure Blood Pressure [Right] O2 Sat by Pulse 99 100 100 Oximetry 10/11/20 10/11/20 10/11/20 06:12 06:17 06:21 Temperature Pulse Rate 60 76 Respiratory Rate Blood Pressure Blood Pressure [Right] O2 Sat by Pulse 90 45 L 81 L Oximetry 10/11/20 10/11/20 10/11/20 06:22 06:28 06:30 Temperature Pulse Rate 59 L Respiratory Rate Blood Pressure Blood Pressure [Right] O2 Sat by Pulse 0 L 78 L 89 Oximetry 12/05/2410/11/20 10/11/20 07:08 07:13 07:14 Temperature Pulse Rate 76 66 Respiratory Rate Blood Pressure 134/69 Blood Pressure [Right] O2 Sat by Pulse 99 75 L 100 Oximetry 10/11/20 10/11/20 10/11/20 07:19 07:24 07:29 Temperature Pulse Rate 65 77 64 Respiratory Rate Blood Pressure Blood Pressure [Right] O2 Sat by Pulse 98 100 86 Oximetry 10/11/20 10/11/20 10/11/20 07:34 07:37 07:40 Temperature Pulse Rate 56 L 75 Respiratory Rate Blood Pressure Blood Pressure [Right] O2 Sat by Pulse 77 L 76 L 85 Oximetry 10/11/20 07:42 Temperature Pulse Rate 64 Respiratory Rate Blood Pressure Blood Pressure [Right] O2 Sat by Pulse 96 Oximetry - Labs Labs: Abnormal Labs 10/10/20 22:15 WBC 12.5 H RBC 3.22 L Hgb 9.9 L Hct 29.6 L Seg Neutrophils % 78.6 H Seg Neutrophils # 9.8 H Laboratory Results - last 24 hr 10/10/20 10/10/20 10/10/20 22:15 22:15 22:15 WBC 12.5 H RBC 3.22 L Hgb 9.9 L Hct 29.6 L MCV 92 MCH 31 MCHC 34 RDW 14.7 Plt Count 266 Lymph % (Auto) 15.8 [place] % (Auto) 4.8 Eos % (Auto) 0.6 Baso % (Auto) 0.2 Lymph # (Auto) 2.0 [place] # (Auto) 0.6 Eos # (Auto) 0.1 Baso # (Auto) 0.0 Seg Neutrophils % 78.6 H Seg Neutrophils # 9.8 H Syphilis IgG Antibody Nonreactive Blood Type O POSITIVE Antibody Screen Negative 10/11/20 01:37 WBC RBC Hgb Hct MCV MCH MCHC RDW Plt Count Lymph % (Auto) [place] % (Auto) Eos % (Auto) Baso % (Auto) Lymph # (Auto) [place] # (Auto) Eos # (Auto) Baso # (Auto) Seg Neutrophils % Seg Neutrophils # Syphilis IgG Antibody Blood Type O POSITIVE Antibody Screen Negative
--- NOTE | 2020-10-11 07:55 | History and Physical Report ---
History of Present Illness Date of examination: 10/11/20 (Pt states no sleep.) Date of admission: 10/10/20 20:42 Chief complaint: Admission d/t mono-mono twins. History of present illness: Pt is 24.1 wks here for admission for mono-mono twins. Will have randi veillance and delivery recommended between 32-34 wks gestation. Past History : 8 Term Births: 3 Premature Births: 1 Living Children: 4 Para: 4 Mult. Births: 0 Prev : 1 Prev. attempt? none Aborta: 3 Elect. Ab: 0 Spont. Ab: 3 Ectopics: 0 # 1 Delivery date: 2001 Weeks Gestation: 8 Delivery type: SAB Comments: D&C done # 2 Delivery date: 11/20/2002 Weeks Gestation: 35 labor: no Delivery type: Hours of labor: 18 Anesthesia type: epidural Delivery location: [place] [facility] Sex: Female weight: 5-13 Name: Chandlershani Comments: Labor induction for pre-eclampsia # 3 Delivery date: 11/12/2003 Weeks Gestation: 37 labor: no Delivery type: Hours of labor: 8 Anesthesia type: IV Delivery location: [place] [facility] Sex: Male weight: 6-13 Name: Luiz # 4 Delivery date: 10/09/2005 Weeks Gestation: 38 labor: no Delivery type: Hours of labor: 8 Anesthesia type: epidural Delivery location: [place] Sex: Male weight: 6-9 Name: Radha # 5 Delivery date: 2007 Weeks Gestation: 4-6 Delivery type: SAB Comments: No D&C # 6 Delivery date: 08/31/2009 Weeks Gestation: 37 Delivery type: Anesthesia type: epidural Delivery location: [place] [facility] Sex: Male weight: 6-7 Name: Eliot Comments: Failed induction pre-eclampsia Failure of descent # 7 Delivery date: 04/21/2018 Weeks Gestation: 18 Delivery type: Vaginal Anesthesia type: IV medication Delivery location: [facility] Sex: male Name: Hany Comments: Inevitable ; fibroids, CF carrier, abnml Quad screen Risk Factors: Smoked Tobacco Use: Current every day smoker Cigarettes: Yes Smokeless Tobacco Use: Never Counseled to quit/cut down: yes Passive smoke exposure: no Drug use: no HIV high-risk behavior: no Alcohol use: no Exercise: no Seatbelt use: 100 % Sun Exposure: rarely Family History Risk Factors: Family History of [place] in females < 65 years old: no Dietary Counseling: pn yes Previous Alcohol Use: Signed On 06/27/2018 Alcohol use: yes Drinks per day: 1 Exercise: no Seatbelt use: 100 % Past Medical History: Reviewed history from 02/04/2018 and no changes required: Negative Past Medical History Past Surgical History: Reviewed history from 02/18/2018 and no changes required: negative Past Medical History Anesthesia Complications: negative Anemia: positive, Before and after delivery Autoimmune Disorder: negative Bleeding Disorder: negative Blood Transfusions: negative Breast Disease: negative Diabetes: negative Heart Disease: negative Hypertension: negative Hepatitis/Liver Disease: negative Kidney Disease/UTI: negative Neurologic/Epilepsy/Migraines: negative Phlebitis/Varicosities: negative Psychiatric: negative Pulmonary Disease/Asthma: negative Thyroid Disease: negative Hospitalizations: negative Surgery (Non-spool hauler): negative Abnormal PAP: positive, Had colpo bx in 2017 RUBEN Exposure: negative Infertility: negative Uterine Anomaly: positive, Fibroids Uterine Surgery (not C/S): negative Other Gynecologic Problems: negative Family Hx: DM.Stroke, HTN Social Hx: Patient is single/[facility] Infection History Hx of STD: none HIV Risk Eval: no Hepatitis B Risk Eval: low risk Personal hx. of genital herpes: no Partner hx. of genital herpes: no Rash, Viral, or Febrile illness since last LMP? no Varicella/Chicken Pox Status: Previous Disease TB Risk: no Genetic History ADVANCED MATERNAL AGE Congenital Heart Defect: Mom: no Dad: no Daisha Disease: Mom: no Dad: no Thalassemia Mom: no Dad: no Neural Tube Defect Mom: no Dad: no Down's Syndrome Mom: yes Dad: no Comments: last tested positive for DS Pastor-Sachs Mom: no Dad: no Sickle Cell Disease/Trait Mom: no Dad: no Hemophilia Mom: no Dad: no Muscular Dystrophy Mom: no Dad: no Cystic Fibrosis Mom: no Dad: no [place] Chorea Mom: no Dad: no Mental Retardation Mom: no Dad: no Fragile X Mom: no Dad: no Other Genetic/Chromosomal Disorder Mom: no Dad: no Child w/other defect Mom: no Dad: no Enviromental Exposures Xray Exposure: no Medication, drug, or alcohol use since LMP: no Chemical/Other Exposure: no Exposure to Cat Liter: no Hx of Parvovirus (Fifth Disease): no Occupational Exposure to Children: none Active Medications (reviewed today): LOTRISONE 1-0.05 % EXTERNAL CREAM (Clotrimazole-Betamethasone) Apply to area twice daily as needed PLUS/IRON 27-1 MG ORAL TABLET ( VIT-FE FUMARATE-FA) 1 po q day as directed ONE-A-DAY WOMENS 1 28-0.8-235 MG ORAL CAPSULE (PRENAT-FE [id number] 3) Current Allergies (reviewed today): * CATS (Critical) * MOLDS (Critical) LORTAB (Critical) * DOGS (Critical) Past History Past Medical History: no pertinent history Past Surgical History: no surgical history Family/Genetic History: diabetes, hypertension, stroke Social history: no significant social history - Obstetrical History Expected Date of Delivery: 01/30/21 Actual Gestation: 24 Week(s) 1 Day(s) : 8 Para: 3 Hx # Term Pregnancies: 3 Number of Pregnancies: 1 Spontaneous Abortions: 3 Induced : 0 Number of Living Children: 4 Medications and Allergies Allergies Allergy/AdvReac Type Severity Reaction Status Date / Time acetaminophen [From Lortab] Allergy Severe Anaphylaxis Verified 10/10/20 21:47 hydrocodone [From Lortab] Allergy Severe Anaphylaxis Verified 10/10/20 21:47 Penicillins Allergy Rash Verified 12/28/19 12:15 Home Medications Medication Instructions Recorded Confirmed Last Taken Type Aspirin [Aspir-Low] 81 mg PO DAILY 04/20/18 04/20/18 1 Day Ago History ~04/19/18 Vit No.130/Iron/Folic 1 each PO DAILY 18 04/20/18 1 Day Ago History [ Tablet] ~04/19/18 Ibuprofen [Motrin 800 MG tab] 800 mg PO TID PRN #30 tablet 04/22/18 Unknown Rx Azithromycin [Zithromax Z-ROSETTA] 250 mg PO DAILY #6 tablet 12/28/19 Unknown Rx Active Meds: Active Medications Acetaminophen (Tylenol) 1,000 mg PO Q6H PRN PRN Reason: Pain MILD(1-3)/Fever >100.5/ORTEGA Al Hydrox/Mg Hydrox/Simethicone (Alum-Mag Hydrox-Simeth 148-886-11oy/5ml) 30 ml PO Q6H PRN PRN Reason: Indigestion Betamethasone Acet/Betameth SodPhos (Celestone Soluspan) 12 mg IM Q24HR NENITA Stop: 10/12/20 10:01 Diphenhydramine HCl (Benadryl) 25 mg PO Q6H PRN PRN Reason: Itching Docusate Sodium (Colace) 100 mg PO Q12H PRN PRN Reason: Constipation Magnesium Hydroxide (Milk Of Magnesia) 30 ml PO QHS PRN PRN Reason: Laxative Effect Multivitamins/Iron/Calcium ( Vitamin) 1 each PO QDAY NENITA Ondansetron HCl (Zofran) 4 mg IV Q6H PRN PRN Reason: Nausea And Vomiting Pseudoephedrine HCl (Sudafed) 30 mg PO Q4H PRN PRN Reason: Nasal Congestion Senna/Docusate Sodium (Senokot S) 2 tab PO Q12H PRN PRN Reason: Laxative Effect Simethicone (Mylicon) 80 mg PO Q6H PRN PRN Reason: Gas pain Sodium Chloride (Sodium Chloride Flush Syringe 10 Ml) 10 ml IV PRN PRN PRN Reason: LINE FLUSH Sodium Chloride (Deep Sea) 2 spray NS Q4H PRN PRN Reason: Congestion Review of Systems All systems: negative - Vital Signs Vital signs: Vital Signs Temp Pulse Resp BP 98.8 F 100 H 12 132/72 10/10/20 21:09 10/10/20 21:09 10/10/20 21:09 10/10/20 21:09 Temp Pulse Resp BP Pulse Ox 98.8 F 63 12 134/69 100 10/10/20 21:09 10/11/20 07:52 10/10/20 21:09 10/11/20 07:08 10/11/20 07:52 - Physical Exam Breasts: Positive: deferred Cardiovascular: Regular rate Lungs: Positive: Normal air movement Abdomen: Positive: normal appearance, soft, normal bowel sounds Genitourinary (Female): Positive: normal external genitalia, normal perenium Vulva: both: normal Vagina: Positive: normal moisture. Negative: discharge Cervix: Negative: lesion, discharge Uterus: Positive: normal size, normal contour Adnexa: both: normal Anus/Rectum: Positive: normal perianal skin, heme negative. Negative: rectal mass, hemorrhoids Extremities: Positive: normal Deep Tendon Reflex Grade: Normal +2 - Obstetrical FHR: auscultation normal (Appropriate for gestational age X 2.) Uterine Contraction Monitor Mode: External Uterine Contraction Pattern: Absent Results Result Diagrams: 10/10/20 22:15 Abnormal lab results 10/10/20 Range/Units 22:15 WBC 12.5 H (4.5-11.0) K/mm3 RBC 3.22 L (3.65-5.03) M/mm3 Hgb 9.9 L (10.1-14.3) gm/dl Hct 29.6 L (30.3-42.9) % Seg Neutrophils % 78.6 H (40.0-70.0) % Seg Neutrophils # 9.8 H (1.8-7.7) K/mm3 All other labs normal. GBS UNKNOWN 1 HR GTT ORDERED DURING THIS ADMISSION HBsAg Screen Negative Negative *1 RPR Non Reactive Non Reactive *2 Rubella Antibodies, IgG 1.98 index Immune >0.99 *3 Non-immune <0.90 Equivocal 0.90 - 0.99 Immune >0.99 ABO Grouping O *4 Rh Factor Positive *5 Please note: Prior records for this patient's ABO / Rh type are not available for additional verification. Antibody Screen Negative Negative *6 ! Tests: (2) HB Solu + Rflx Pending Sale To [facility] ([id number]) Hemoglobin (Hgb) Solubility Negative Negative *31 Tests: (3) HIV Ag/Ab with Reflex (683506) HIV Screen 4th Generation wRfx Non Reactive Non Reactive *32 Tests: (4) HCV Ab w/Rflx to Verification ([id number]) ! HCV Ab <0.1 s/co ratio 0.0-0.9 *33 Tests: (5) Comment: ([id number]) ! Comment: SPRCS *34 Non reactive HCV antibody screen is consistent with no HCV infection, unless recent infection is suspected or other evidence exists to indicate HCV infection. Assessment and Plan Noted on [facility] consult report need for 3 hr gtt d/t elevated 1 hr gtt. 1 hr gtt during this admission: 63. Will clarify need for 3 hr gtt. - Patient Problems (1) with 24 completed weeks gestation Onset Date: ~10/10/20 Current Visit: Yes Status: Acute Plan to address problem: [place] Twins: EFM every 4 hours for at least one hour at a time. Continuous EFM if category 2. (2) Monochorionic and monoamniotic twin gestation Current Visit: Yes Status: Acute Qualifiers: Trimester: second trimester Qualified Code(s): O30.012 - Twin , mo nochorionic/monoamniotic, second trimester Plan to address problem: Inpatient expectant management until delivery. Complete steroids. Growth every 2 weeks. BPP twice weekly beginning at 28 weeks. EFM every 4 hours for at least 1 hour. If category 2 tracing, then continuous. Neonatology consult. echocardiogram if clinically indicated. Delivery recommended between 32-34 wks gestation. (3) Advanced maternal age in multigravida Current Visit: Yes Status: Acute Qualifiers: Trimester: second trimester Qualified Code(s): O09.522 - Supervision of elderly multigravida, second trimester Plan to address problem: Continue to monitor maternal status during admission.
[2020-10-11] MEDS: BETAMET ACET/BETAMET NA PH 6 MG/ML INJ 5 ML MDV IM SCH (09:04)
[2020-10-11] MEDS: PRENATAL VIT27-FE FUMARATE-FOLIC ACID VIT TAB PO SCH (10:51)
--- NOTE | 2020-10-11 15:22 | Ultrasound Report ---
ULTRASOUND OBSTETRIC INDICATION / CLINICAL INFORMATION: twins. Clinical Gestational Age (GA): 24 weeks 1.days TECHNIQUE: Transabdominal. COMPARISON: None available. FINDINGS: Twin intrauterine . Baby A: Biparietal Diameter = 5.8 cm = 23 weeks 4.days Head Circumference = 22.8 cm = 24 weeks 6.days Abdominal Circumference = 20.6 cm = 25 weeks 1.days Femur Length = 4.7 cm = 25 weeks. 5 days Average Ultrasound Age (AUA) = 24 weeks. 6 days Heart Rate: 147 beats per minute. Estimated Weight in grams (if calculated): 786 Position: breech. Cervix: closed. Length in cm (if measured): 3.8 Placenta: Anterior grade 1 and free of the os. Amniotic Fluid Volume: normal Amniotic Fluid Index (GRABIEL) in cm (if calculated): Largest vertical pocket measures 4.4 cm (2-8 cm is normal for twin ). Maternal Adnexa: No significant abnormality. Twin B: Biparietal Diameter = 5.3 cm = 22 weeks 2 days Head Circumference = 19.9 cm = 22 weeks 0.days Abdominal Circumference = 19.4 cm = 24 weeks 0.days Femur Length = 4.7 cm = 25 weeks. 4 days Average Ultrasound Age (AUA) = 23 weeks. 3 days Heart Rate: 149 beats per minute. Estimated Weight in grams (if calculated): 686 Position: transverse. Head is on the maternal right. Cervix: closed. Length in cm (if measured): 3.8 Placenta: Anterior grade 1 and free of the os. Amniotic Fluid Volume: normal Amniotic Fluid Index (GRABIEL) in cm (if calculated): Largest vertical pocket measures 4.4 cm (2-8 cm is normal for twin ). Maternal Adnexa: No significant abnormality. IMPRESSION: 1. Viable Twin intrauterine . 2. Twin A average ultrasound age = 24 weeks 6 days. 3. Twin B average ultrasound age = 23 weeks 3 days. 4. No significant abnormality. Signer Name: Oral Plunkett MD Signed: 10/11/2020 3:18 PM Workstation Name: [id number]
--- NOTE | 2020-10-11 15:27 | Ultrasound Report ---
ULTRASOUND OBSTETRIC INDICATION / CLINICAL INFORMATION: twins. Clinical Gestational Age (GA): 24 weeks 1.days TECHNIQUE: Transabdominal. COMPARISON: 04/21/2018. FINDINGS: This dictation encompasses findings Acc #[id number] and [id number]. The two studies cannot be combine d, so they were dictated separately. Twin intrauterine . Twin A: Biparietal Diameter = 5.8 cm = 23 weeks 4.days Head Circumference = 22.8 cm = 24 weeks 6.days Abdominal Circumference = 20.6 cm = 25 weeks 1.days Femur Length = 4.7 cm = 25 weeks. 5 days Average Ultrasound Age (AUA) = 24 weeks. 6 days Heart Rate: 147 beats per minute. Estimated Weight in grams (if calculated): 786 Position: breech. Cervix: closed. Length in cm (if measured): 3.8 Placenta: Anterior grade 1 and free of the os. Amniotic Fluid Volume: normal Amniotic Fluid Index (GRABIEL) in cm (if calculated): Largest vertical pocket measures 4.4 cm (2-8 cm is normal for twin ). Maternal Adnexa: No significant abnormality. Twin B: Biparietal Diameter = 5.3 cm = 22 weeks 2 days Head Circumference = 19.9 cm = 22 weeks 0.days Abdominal Circumference = 19.4 cm = 24 weeks 0.days Femur Length = 4.7 cm = 25 weeks. 4 days Average Ultrasound Age (AUA) = 23 weeks. 3 days Heart Rate: 149 beats per minute. Estimated Weight in grams (if calculated): 686 Position: transverse. Head is on the maternal right. Cervix: closed. Length in cm (if measured): 3.8 Placenta: Anterior grade 1 and free of the os. Amniotic Fluid Volume: normal Amniotic Fluid Index (GRABIEL) in cm (if calculated): Largest vertical pocket measures 4.4 cm (2-8 cm is normal for twin ). Maternal Adnexa: No significant abnormality. IMPRESSION: 1. Viable Twin intrauterine . 2. Twin A average ultrasound age = 24 weeks 6 days. 3. Twin B average ultrasound age = 23 weeks 3 days. 4. No significant abnormality. Signer Name: Oral Plunkett MD Signed: 10/11/2020 3:22 PM Workstation Name: [id number]
--- NOTE | 2020-10-11 19:14 | Event Note ---
Date: 10/11/20 (Called placed to [facility]) Call placed to [facility] office to let them know that patient has been admitted to the hospital.
[2020-10-11] MEDS ORDERED: diphenhydrAMINE 25 MG CAP PO PRN ×2 (22:00)
[2020-10-11] MEDS: diphenhydrAMINE 50 MG CAP PO PRN (22:51)
--- NOTE | 2020-10-12 08:00 | Progress Note ---
<YANIRA DIGGS - Last Filed: 10/12/20 08:01> Assessment and Plan pt resting, no complaints. denies ctx, srom or bleeding. reports active FM. Continue current management. - Patient Problems (1) BMI greater than 40 Current Visit: Yes Status: Acute (2) Monochorionic and monoamniotic twin gestation Current Visit: Yes Status: Acute Qualifiers: Trimester: second trimester Qualified Code(s): O30.012 - Twin , monochorionic/monoamniotic, second trimester Plan to address problem: q4hr monitoring for at least 1 hour, cont EFM for cat 2 tracing. steroids growth scan q2 weeks BPP bi-weekly starting 28 weeks NICU consult del rec 32-34 weeks (3) with 24 completed weeks gestation Onset Date: ~10/10/20 Current Visit: Yes Status: Acute (4) Abnormal glucose tolerance affecting , antepartum Current Visit: Yes Status: Acute Plan to address problem: elevated 1hGTT 3hGTT after completion of steroids Subjective - Subjective Date of service: 10/12/20 Principal diagnosis: IUP @ 24+ ,mono-mono twins Patient reports: movement normal, no new complaints, no loss of fluid, no vaginal bleeding, no contractions Objective - Vital Signs Vital Signs: Vital Signs - 12hr 10/11/20 10/11/20 10/11/20 20:00 20:05 20:10 Temperature Pulse Rate 73 78 74 Respiratory Rate Blood Pressure O2 Sat by Pulse 91 100 99 Oximetry 10/11/20 10/11/20 10/11/20 20:15 20:20 20:25 Temperature Pulse Rate 73 78 81 Respiratory Rate Blood Pressure O2 Sat by Pulse 100 99 99 Oximetry 10/11/20 10/11/20 10/11/20 20:30 20:35 20:40 Temperature Pulse Rate 74 72 68 Respiratory Rate Blood Pressure O2 Sat by Pulse 100 99 100 Oximetry 10/11/20 10/11/20 10/11/20 20:45 20:50 20:54 Temperature Pulse Rate 66 70 74 Respiratory Rate Blood Pressure 127/60 O2 Sat by Pulse 99 100 Oximetry 10/11/20 10/11/20 10/11/20 20:55 21:00 21:05 Temperature Pulse Rate 72 66 77 Respiratory Rate Blood Pressure O2 Sat by Pulse 100 100 99 Oximetry 10/11/20 10/11/20 10/11/20 21:07 21:10 21:12 Temperature Pulse Rate 85 33 L Respiratory Rate Blood Pressure O2 Sat by Pulse 93 83 L 83 L Oximetry 10/11/20 10/11/20 10/11/20 21:24 21:30 21:42 Temperature Pulse Rate 76 116 H Respiratory Rate Blood Pressure O2 Sat by Pulse 90 16 L 78 L Oximetry 10/11/20 10/11/20 10/11/20 21:47 21:50 21:54 Temperature Pulse Rate 25 L 60 Respiratory Rate Blood Pressure O2 Sat by Pulse 78 L 81 L 94 Oximetry 10/11/20 10/11/20 10/11/20 21:59 22:05 22:10 Temperature Pulse Rate 50 L 67 188 H Respiratory Rate Blood Pressure O2 Sat by Pulse 83 L 78 L 84 Oximetry 10/11/20 10/11/20 10/11/20 22:14 22:18 22:24 Temperature Pulse Rate 53 L 161 H Respiratory Rate Blood Pressure O2 Sat by Pulse 81 L 79 L 86 Oximetry 10/11/20 10/11/20 10/11/20 22:28 22:29 22:33 Temperature Pulse Rate 121 H 41 L 89 Respiratory Rate Blood Pressure O2 Sat by Pulse 83 L 84 85 Oximetry 10/11/20 10/11/20 10/11/20 22:34 22:38 22:40 Temperature Pulse Rate 105 H Respiratory Rate Blood Pressure O2 Sat by Pulse 81 L 76 L 87 Oximetry 10/11/20 10/11/20 10/11/20 22:44 22:45 22:51 Temperature Pulse Rate 182 H Respiratory Rate Blood Pressure O2 Sat by Pulse 58 L 70 L 79 L Oximetry 10/11/20 10/12/20 10/12/20 22:52 03:30 03:35 Temperature Pulse Rate 134 H 54 L 66 Respiratory Rate Blood Pressure O2 Sat by Pulse 79 L 97 99 Oximetry 10/12/20 10/12/20 10/12/20 03:40 03:45 03:50 Temperature Pulse Rate 72 61 84 Respiratory Rate Blood Pressure O2 Sat by Pulse 99 99 99 Oximetry 10/12/20 10/12/20 10/12/20 03:55 04:00 04:05 Temperature Pulse Rate 71 75 71 Respiratory Rate Blood Pressure O2 Sat by Pulse 100 98 98 Oximetry 10/12/20 10/12/20 10/12/20 04:10 04:15 04:20 Temperature Pulse Rate 63 63 63 Respiratory Rate Blood Pressure O2 Sat by Pulse 99 98 98 Oximetry 10/12/20 10/12/20 10/12/20 04:25 04:30 04:35 Temperature Pulse Rate 68 78 68 Respiratory Rate Blood Pressure O2 Sat by Pulse 98 99 99 Oximetry 10/12/20 10/12/20 10/12/20 04:40 04:45 04:50 Temperature Pulse Rate 67 61 66 Respiratory Rate Blood Pressure O2 Sat by Pulse 100 100 99 Oximetry 10/12/20 10/12/20 10/12/20 04:53 06:45 06:54 Temperature Pulse Rate 190 H 51 L Respiratory Rate Blood Pressure O2 Sat by Pulse 60 L 0 L 81 L Oximetry 10/12/20 10/12/20 10/12/20 07:06 07:08 07:10 Temperature Pulse Rate 90 75 Respiratory Rate Blood Pressure 120/58 O2 Sat by Pulse 91 99 Oximetry 10/12/20 07:30 Temperature 98.4 F Pulse Rate Respiratory 16 Rate Blood Pressure O2 Sat by Pulse Oximetry - Exam Breasts: normal Cardiovascular: Regular rate Lungs: Normal air movement Abdomen: Present: normal appearance, soft Uterus: Present: normal Uterine Contraction Monitor Mode: Palpation Extremities: normal - Labs Labs: Abnormal Labs 10/10/20 10/11/20 22:15 08:49 WBC 12.5 H RBC 3.22 L Hgb 9.9 L Hct 29.6 L Seg Neutrophils % 78.6 H Seg Neutrophils # 9.8 H POC Glucose 63 L Laboratory Results - last 24 hr 10/11/20 10/11/20 08:00 08:49 POC Glucose 63 L Gest Glucose Tolerance <CELSA BAUM - Last Filed: 10/12/20 11:51> Assessment and Plan - Patient Problems (1) with 24 completed weeks gestation Onset Date: ~10/10/20 Current Visit: Yes Status: Acute (2) Monochorionic and monoamniotic twin gestation Current Visit: Yes Status: Acute Qualifiers: Trimester: second trimester Qualified Code(s): O30.012 - Twin , monochorionic/monoamniotic, second trimester Plan to address problem: growth scan scheduled for 10/25/2020 Steroids completed Will work on getting delivery scheduled b/w 32-34 weeks Plan of care explained, questions encouraged and answered, she voiced understanding and agrees with plan of care (3) Abnormal glucose tolerance affecting , antepartum Current Visit: Yes Status: Acute Plan to address problem: 3hgtt scheduled for 10/20/2020 (4) Advanced maternal age in multigravida Current Visit: No Status: Acute Qualifiers: Trimester: second trimester Qualified Code(s): O09.522 - Supervision of elderly multigravida, second trimester Plan to address problem: Patient declines sterilization at this time Objective - Vital Signs Vital Signs: Vital Signs - 12hr 10/12/20 10/12/20 10/12/20 03:30 03:35 03:40 Temperature Pulse Rate 54 L 66 72 Respiratory Rate Blood Pressure O2 Sat by Pulse 97 99 99 Oximetry 10/12/20 10/12/20 10/12/20 03:45 03:50 03:55 Temperature Pulse Rate 61 84 71 Respiratory Rate Blood Pressure O2 Sat by Pulse 99 99 100 Oximetry 10/12/20 10/12/20 10/12/20 04:00 04:05 04:10 Temperature Pulse Rate 75 71 63 Respiratory Rate Blood Pressure O2 Sat by Pulse 98 98 99 Oximetry 10/12/20 10/12/20 10/12/20 04:15 04:20 04:25 Temperature Pulse Rate 63 63 68 Respiratory Rate Blood Pressure O2 Sat by Pulse 98 98 98 Oximetry 10/12/20 10/12/20 10/12/20 04:30 04:35 04:40 Temperature Pulse Rate 78 68 67 Respiratory Rate Blood Pressure O2 Sat by Pulse 99 99 100 Oximetry 10/12/20 10/12/20 10/12/20 04:45 04:50 04:53 Temperature Pulse Rate 61 66 Respiratory Rate Blood Pressure O2 Sat by Pulse 100 99 60 L Oximetry 10/12/20 10/12/20 10/12/20 06:45 06:54 07:06 Temperature Pulse Rate 190 H 51 L Respiratory Rate Blood Pressure O2 Sat by Pulse 0 L 81 L 91 Oximetry 10/12/20 10/12/20 10/12/20 07:08 07:10 07:30 Temperature 98.4 F Pulse Rate 90 75 Respiratory 16 Rate Blood Pressure 120/58 O2 Sat by Pulse 99 Oximetry 10/12/20 10/12/20 10/12/20 10:22 10:27 10:31 Temperature Pulse Rate 99 H 101 H 83 Respiratory Rate Blood Pressure 130/71 O2 Sat by Pulse 99 100 Oximetry 10/12/20 10/12/20 10/12/20 10:32 10:37 10:42 Temperature Pulse Rate 85 85 82 Respiratory Rate Blood Pressure O2 Sat by Pulse 99 100 99 Oximetry 10/12/20 10/12/20 10/12/20 10:47 10:51 10:57 Temperature Pulse Rate 91 H 82 83 Respiratory Rate Blood Pressure O2 Sat by Pulse 99 100 99 Oximetry 10/12/20 10/12/20 10/12/20 11:02 11:06 11:12 Temperature Pulse Rate 85 88 81 Respiratory Rate Blood Pressure O2 Sat by Pulse 100 100 100 Oximetry 10/12/20 10/12/20 10/12/20 11:17 11:22 11:27 Temperature Pulse Rate 80 79 79 Respiratory Rate Blood Pressure O2 Sat by Pulse 100 100 100 Oximetry 10/12/20 10/12/20 11:32 11:37 Temperature Pulse Rate 76 80 Respiratory Rate Blood Pressure O2 Sat by Pulse 100 99 Oximetry - Labs Labs: Abnormal Labs 10/10/20 10/11/20 22:15 08:49 WBC 12.5 H RBC 3.22 L Hgb 9.9 L Hct 29.6 L Seg Neutrophils % 78.6 H Seg Neutrophils # 9.8 H POC Glucose 63 L
[2020-10-12] MEDS: PRENATAL VIT27-FE FUMARATE-FOLIC ACID VIT TAB PO SCH (09:43)
[2020-10-12] MEDS: BETAMET ACET/BETAMET NA PH 6 MG/ML INJ 5 ML MDV IM SCH (09:44)
[2020-10-12] MEDS: ASPIRIN 81 MG TAB CHEW PO SCH (09:44)
--- NOTE | 2020-10-12 13:06 | Progress Note ---
Assessment and Plan - Patient Problems (1) 24 weeks gestation of Current Visit: Yes Status: Acute (2) Monochorionic and monoamniotic twin gestation Current Visit: Yes Status: Acute Qualifiers: Trimester: second trimester Qualified Code(s): O30.012 - Twin , monochorionic/monoamniotic, second trimester Plan to address problem: q4hr monitoring for at least 1 hour, cont EFM for cat 2 tracing. Steroids completed 10/11 and 10/12. growth scan q2 weeks Next growth 10/25/20. BPP twice a week starting 28 weeks NICU consult Delivery recommended between 32.0-34.0 weeks (3) Abnormal glucose tolerance affecting , antepartum Current Visit: Yes Status: Acute Plan to address problem: Patient will need 3 hour GTT 1 week after the second dose of steroids, on or after 10/19. (4) BMI greater than 40 Current Visit: Yes Status: Acute (5) AMA (advanced maternal age) multigravida 35+ Current Visit: No Status: Acute Plan to address problem: Low risk NIPT (6) Single artery and vein of umbilical cord Current Visit: Yes Status: Acute Plan to address problem: Tim echocardiogram performed on 09/29 was technically difficult. echocardiogram is recommended if clinically indicated. Subjective - Subjective Date of service: 10/12/20 Principal diagnosis: IUP @ 24+ ,mono-mono twins Patient reports: movement normal, no new complaints, no loss of fluid, no vaginal bleeding, no contractions Objective - Vital Signs Vital Signs: Vital Signs - 12hr 10/12/20 10/12/20 10/12/20 03:30 03:35 03:40 Temperature Pulse Rate 54 L 66 72 Respiratory Rate Blood Pressure O2 Sat by Pulse 97 99 99 Oximetry 10/12/20 10/12/20 10/12/20 03:45 03:50 03:55 Temperature Pulse Rate 61 84 71 Respiratory Rate Blood Pressure O2 Sat by Pulse 99 99 100 Oximetry 10/12/20 10/12/20 10/12/20 04:00 04:05 04:10 Temperature Pulse Rate 75 71 63 Respiratory Rate Blood Pressure O2 Sat by Pulse 98 98 99 Oximetry 10/12/20 10/12/20 10/12/20 04:15 04:20 04:25 Temperature Pulse Rate 63 63 68 Respiratory Rate Blood Pressure O2 Sat by Pulse 98 98 98 Oximetry 10/12/20 10/12/20 10/12/20 04:30 04:35 04:40 Temperature Pulse Rate 78 68 67 Respiratory Rate Blood Pressure O2 Sat by Pulse 99 99 100 Oximetry 10/12/20 10/12/20 10/12/20 04:45 04:50 04:53 Temperature Pulse Rate 61 66 Respiratory Rate Blood Pressure O2 Sat by Pulse 100 99 60 L Oximetry 10/12/20 10/12/20 10/12/20 06:45 06:54 07:06 Temperature Pulse Rate 190 H 51 L Respiratory Rate Blood Pressure O2 Sat by Pulse 0 L 81 L 91 Oximetry 10/12/20 10/12/20 10/12/20 07:08 07:10 07:30 Temperature 98.4 F Pulse Rate 90 75 Respiratory 16 Rate Blood Pressure 120/58 O2 Sat by Pulse 99 Oximetry 10/12/20 10/12/20 10/12/20 10:22 10:27 10:31 Temperature Pulse Rate 99 H 101 H 83 Respiratory Rate Blood Pressure 130/71 O2 Sat by Pulse 99 100 Oximetry 10/12/20 10/12/20 10/12/20 10:32 10:37 10:42 Temperature Pulse Rate 85 85 82 Respiratory Rate Blood Pressure O2 Sat by Pulse 99 100 99 Oximetry 10/12/20 10/12/20 10/12/20 10:47 10:51 10:57 Temperature Pulse Rate 91 H 82 83 Respiratory Rate Blood Pressure O2 Sat by Pulse 99 100 99 Oximetry 10/12/20 10/12/20 10/12/20 11:02 11:06 11:12 Temperature Pulse Rate 85 88 81 Respiratory Rate Blood Pressure O2 Sat by Pulse 100 100 100 Oximetry 10/12/20 10/12/20 10/12/20 11:17 11:22 11:27 Temperature Pulse Rate 80 79 79 Respiratory Rate Blood Pressure O2 Sat by Pulse 100 100 100 Oximetry 10/12/20 10/12/20 10/12/20 11:30 11:32 11:37 Temperature 98.1 F Pulse Rate 76 80 Respiratory 18 Rate Blood Pressure O2 Sat by Pulse 100 99 Oximetry 10/12/20 10/12/20 10/12/20 11:41 11:47 11:52 Temperature Pulse Rate 73 73 78 Respiratory Rate Blood Pressure O2 Sat by Pulse 100 99 99 Oximetry 10/12/20 10/12/20 11:57 11:58 Temperature Pulse Rate 75 102 H Respiratory Rate Blood Pressure O2 Sat by Pulse 99 80 L Oximetry - Exam Abdomen: Present: soft (non-tender, gravid) FHR: other (140s-150s, appropriate for gestational age x 2. Difficult to trace fetus A secondary to movement and early gestation) - Labs Labs: Abnormal Labs 10/10/20 10/11/20 22:15 08:49 WBC 12.5 H RBC 3.22 L Hgb 9.9 L Hct 29.6 L Seg Neutrophils % 78.6 H Seg Neutrophils # 9.8 H POC Glucose 63 L - Results US- obstetric: report reviewed (10/11. Fetus A 786 grams, 88% and fetus B 686 grams,50%.)
--- NOTE | 2020-10-12 14:07 | Consultation ---
Consult Note - Parent Education I met with parent(s) and discussed the following:: Need for NICU admission, Poss ible need for intubation and surfactant or other resp support, Temperature regulation, Possible need for IV fluids/TPN and IV antibiotics, Importance of providing breast milk & encouraged pumping aft delivery, Donor breast milk if baby meets criteria after , Slow feeding advancement and monitoring of tolerance. NG/OG feeds Parent(s) demonstrated understanding of all the information:: Yes Additional Comment: If delivery seems likely before 32 weeks will return to update parents on more specific NICU needs Assessment and Plan - Assessment Gestation:: 24 Estimated Weight: Twin A 786, Twin B 686 - Plan Plan: Agree with Mag & steroids Will attend delivery Please call NICU with questions
[2020-10-12] MEDS: diphenhydrAMINE 50 MG CAP PO PRN (21:11)
[2020-10-13] MEDS: ACETAMINOPHEN 500 MG TAB PO PRN (01:30)
--- NOTE | 2020-10-13 02:22 | Event Note ---
Date: 10/13/20 Call by RN d/t inability to find FHT's on twin B after ? deceleration. US ordered, however I arrived before the tech presented. With bedside US and after multiple position changes FHT's monitored mostly continuous with patient flat on her back. The babies could not be appropriately monitored with her in any lateral position or with the head of the bed slightly elevated d/t her body habitus and large panniculus. She complained of a ORTEGA and generalized pain from lying flat on her back and requested to stop monitoring. She was given Tylenol Will allow her to shower now then recheck FHT's when she gets back in bed.
--- NOTE | 2020-10-13 06:24 | Progress Note ---
Assessment and Plan Pt's only question is to have a pressure mattress. Will have one placed on her bed. RN attempting to obtain FHTs @ time of visit. Pt denies any ctx Just uncomfortable in bed. Assessment and POC reviewed with pt. All concerns addressed Consult with Dr Villegas - Patient Problems (1) Monochorionic and monoamniotic twin gestation Onset Date: ~10/13/20 Current Visit: Yes Status: Acute Qualifiers: Trimester: second trimester Qualified Code(s): O30.012 - Twin , monochorionic/monoamniotic, second trimester Plan to address problem: These are Dr Castro's recommendations: q4hr monitoring for at least 1 hour, cont EFM for cat 2 tracing. Steroids completed 10/11 and 10/12. growth scan q2 weeks Next growth 10/25/20. BPP twice a week starting 28 weeks NICU consult: completed thank you Delivery recommended between 32.0-34.0 weeks (2) 24 weeks gestation of Current Visit: Yes Status: Acute (3) Abnormal glucose tolerance affecting , antepartum Onset Date: ~10/13/20 Current Visit: Yes Status: Acute Plan to address problem: Pt scheduled for 3hr GTT on 10-20-20; NPO after midnight 10-20-20 (4) BMI greater than 40 Onset Date: ~10/13/20 Current Visit: Yes Status: Acute Plan to address problem: QD wgt ordered (5) Single artery and vein of umbilical cord Onset Date: ~10/13/20 Current Visit: Yes Status: Acute Plan to address problem: Q4hr monitoring Assessment of FM Subjective - Subjective Date of service: 10/13/20 (pt asking for air mattress) Principal diagnosis: IUP @ 24w3d ,mono-mono twins, IUGR Patient reports: movement normal, no new complaints, no loss of fluid, no vaginal bleeding, no contractions Objective - Vital Signs Vital Signs: Vital Signs - 12hr 10/12/20 10/12/20 10/12/20 20:02 20:03 20:07 Temperature Pulse Rate 172 H 80 82 Respiratory Rate Blood Pressure 124/60 Blood Pressure [Right] O2 Sat by Pulse 80 L 100 Oximetry 10/12/20 10/12/20 10/12/20 20:08 20:22 20:31 Temperature 98.1 F Pulse Rate 84 113 H Respiratory 18 Rate Blood Pressure Blood Pressure 124/60 [Right] O2 Sat by Pulse 100 81 L 90 Oximetry 10/12/20 10/12/20 10/12/20 20:32 20:36 20:41 Temperature Pulse Rate 113 H 67 70 Respiratory Rate Blood Pressure Blood Pressure [Right] O2 Sat by Pulse 90 97 99 Oximetry 10/12/20 10/12/20 10/12/20 20:46 20:51 20:54 Temperature Pulse Rate 66 79 54 L Respiratory Rate Blood Pressure Blood Pressure [Right] O2 Sat by Pulse 98 99 83 L Oximetry 10/12/20 10/12/20 10/12/20 21:21 22:57 23:02 Temperature Pulse Rate 58 L 71 Respiratory Rate Blood Pressure Blood Pressure [Right] O2 Sat by Pulse 82 L 99 99 Oximetry 10/12/20 10/12/20 10/12/20 23:07 23:12 23:17 Temperature Pulse Rate 65 61 76 Respiratory Rate Blood Pressure Blood Pressure [Right] O2 Sat by Pulse 94 100 98 Oximetry 10/12/20 10/12/20 10/12/20 23:22 23:27 23:32 Temperature Pulse Rate 63 71 64 Respiratory Rate Blood Pressure Blood Pressure [Right] O2 Sat by Pulse 100 100 100 Oximetry 10/12/20 10/12/20 10/12/20 23:37 23:42 23:47 Temperature Pulse Rate 71 66 64 Respiratory Rate Blood Pressure Blood Pressure [Right] O2 Sat by Pulse 100 100 100 Oximetry 10/12/20 10/12/20 10/13/20 23:52 23:57 00:02 Temperature Pulse Rate 95 H 69 63 Respiratory Rate Blood Pressure Blood Pressure [Right] O2 Sat by Pulse 98 100 100 Oximetry 10/13/20 10/13/20 10/13/20 00:07 00:12 00:36 Temperature Pulse Rate 63 136 H 66 Respiratory Rate Blood Pressure Blood Pressure [Right] O2 Sat by Pulse 100 83 L 85 Oximetry 10/13/20 10/13/20 10/13/20 00:41 00:46 00:51 Temperature Pulse Rate 60 59 L 68 Respiratory Rate Blood Pressure Blood Pressure [Right] O2 Sat by Pulse 100 100 100 Oximetry 10/13/20 10/13/20 10/13/20 00:56 01:01 01:06 Temperature Pulse Rate 66 74 69 Respiratory Rate Blood Pressure Blood Pressure [Right] O2 Sat by Pulse 100 100 100 Oximetry 10/13/20 10/13/20 10/13/20 01:11 01:16 01:21 Temperature Pulse Rate 67 65 72 Respiratory Rate Blood Pressure Blood Pressure [Right] O2 Sat by Pulse 100 100 100 Oximetry 10/13/20 10/13/20 10/13/20 01:26 01:30 01:33 Temperature Pulse Rate 87 63 Respiratory 18 Rate Blood Pressure Blood Pressure [Right] O2 Sat by Pulse 100 77 L Oximetry 10/13/20 10/13/20 10/13/20 06:11 06:16 06:21 Temperature Pulse Rate 133 H 61 63 Respiratory Rate Blood Pressure Blood Pressure [Right] O2 Sat by Pulse 88 99 100 Oximetry - Exam Breasts: deferred Cardiovascular: Regular rate Lungs: Clear to auscultation Abdomen: Present: normal appearance, soft. Absent: distention, tenderness Uterus: Present: normal FHR: auscultation normal Uterine Contraction Monitor Mode: External Uterine Contraction Pattern: Absent Uterine Tone Measurement Phase: Resting Extremities: edema Deep Tendon Reflex Grade: Normal +2 - Labs Labs: Abnormal Labs 10/10/20 10/11/20 22:15 08:49 WBC 12.5 H RBC 3.22 L Hgb 9.9 L Hct 29.6 L Seg Neutrophils % 78.6 H Seg Neutrophils # 9.8 H POC Glucose 63 L
[2020-10-13] MEDS: PRENATAL VIT27-FE FUMARATE-FOLIC ACID VIT TAB PO SCH (09:24)
[2020-10-13] MEDS: DOCUSATE SODIUM 100 MG CAP PO PRN (09:24)
[2020-10-13] MEDS: ASPIRIN 81 MG TAB CHEW PO SCH (09:25)
[2020-10-13] MEDS ORDERED: BUTALB/ACETAMINOPHEN/CAFFEINE TAB PO ONE (20:30)
--- NOTE | 2020-10-14 07:18 | Progress Note ---
Assessment and Plan A: Mo Mo TIUP at 24 4/7 weeks gestation Growth 10/11 Twin A 786gm hadlock 88% breech , twin B 686 gm hadlock 50% transverse AMA -low risk NIPT Mat obesity >40 Abnl RGS S/p BMZ and NICU consult Rec: 1. Continue inpt observation , monitor for labor , distress 2. NST q 4hr x 1 hr , continuous if NRFHT 3. Growth scans [id number] , next due 10/25 4. Twice weekly BPP beginning at 28 weeks gestation 5. 3hr GTT 1 week after steroids 6. Delivery at 32 0 - 34 0 Subjective - Subjective Date of service: 10/14/20 Principal diagnosis: IUP @ 24w4d ,mono-mono twins, IUGR Interval history: No complaints Denied bleeding, contractions , or LOF Patient reports: movement normal, no new complaints, no loss of fluid, no vaginal bleeding, no contractions Objective - Vital Signs Vital Signs: Vital Signs - 12hr 10/13/20 10/13/20 10/13/20 19:17 19:22 19:27 Temperature Pulse Rate 71 67 67 Respiratory Rate Blood Pressure Blood Pressure [Right] O2 Sat by Pulse 100 100 99 Oximetry 10/13/20 10/13/20 10/13/20 19:32 19:37 19:42 Temperature Pulse Rate 71 71 73 Respiratory Rate Blood Pressure Blood Pressure [Right] O2 Sat by Pulse 100 100 99 Oximetry 10/13/20 10/13/20 10/13/20 19:47 19:52 19:57 Temperature Pulse Rate 64 77 71 Respiratory Rate Blood Pressure Blood Pressure [Right] O2 Sat by Pulse 99 99 99 Oximetry 10/13/20 10/13/20 10/13/20 20:02 20:07 20:12 Temperature Pulse Rate 66 70 73 Respiratory Rate Blood Pressure Blood Pressure [Right] O2 Sat by Pulse 100 99 99 Oximetry 10/13/20 10/13/20 10/13/20 20:17 20:22 20:26 Temperature Pulse Rate 69 70 71 Respiratory Rate Blood Pressure 103/55 Blood Pressure [Right] O2 Sat by Pulse 99 99 Oximetry 10/13/20 10/14/20 10/14/20 20:51 00:21 00:26 Temperature 98.6 F Pulse Rate 64 65 Respiratory 18 Rate Blood Pressure Blood Pressure 103/55 [Right] O2 Sat by Pulse 99 99 Oximetry 10/14/20 10/14/20 10/14/20 00:30 00:31 00:36 Temperature 98.3 F Pulse Rate 61 76 Respiratory Rate Blood Pressure Blood Pressure [Right] O2 Sat by Pulse 99 98 Oximetry 10/14/20 10/14/20 10/14/20 00:41 00:46 00:51 Temperature Pulse Rate 65 65 69 Respiratory Rate Blood Pressure Blood Pressure [Right] O2 Sat by Pulse 97 97 98 Oximetry 10/14/20 10/14/20 10/14/20 00:56 01:01 01:06 Temperature Pulse Rate 61 64 67 Respiratory Rate Blood Pressure Blood Pressure [Right] O2 Sat by Pulse 98 98 97 Oximetry 10/14/20 10/14/20 10/14/20 01:11 01:16 01:21 Temperature Pulse Rate 78 69 62 Respiratory Rate Blood Pressure Blood Pressure [Right] O2 Sat by Pulse 99 98 98 Oximetry 10/14/20 10/14/20 10/14/20 01:26 01:28 01:31 Temperature Pulse Rate 68 72 65 Respiratory Rate Blood Pressure Blood Pressure [Right] O2 Sat by Pulse 98 93 99 Oximetry 10/14/20 10/14/20 10/14/20 01:34 01:36 01:39 Temperature Pulse Rate 78 67 66 Respiratory Rate Blood Pressure Blood Pressure [Right] O2 Sat by Pulse 93 97 93 Oximetry 10/14/20 10/14/20 10/14/20 01:41 01:46 01:51 Temperature Pulse Rate 71 74 64 Respiratory Rate Blood Pressure Blood Pressure [Right] O2 Sat by Pulse 98 97 98 Oximetry 10/14/20 10/14/20 10/14/20 01:56 02:01 05:18 Temperature Pulse Rate 65 73 54 L Respiratory Rate Blood Pressure 108/55 Blood Pressure [Right] O2 Sat by Pulse 98 91 Oximetry 10/14/20 10/14/20 10/14/20 05:31 05:36 05:41 Temperature Pulse Rate 60 63 65 Respiratory Rate Blood Pressure Blood Pressure [Right] O2 Sat by Pulse 99 100 99 Oximetry 10/14/20 10/14/20 10/14/20 05:46 05:51 05:56 Temperature Pulse Rate 58 L 59 L 67 Respiratory Rate Blood Pressure Blood Pressure [Right] O2 Sat by Pulse 100 100 95 Oximetry 12/08/2410/14/20 10/14/20 05:57 06:01 06:06 Temperature Pulse Rate 62 58 L 60 Respiratory Rate Blood Pressure Blood Pressure [Right] O2 Sat by Pulse 94 99 97 Oximetry 10/14/20 10/14/20 10/14/20 06:09 06:11 06:15 Temperature Pulse Rate 60 71 61 Respiratory Rate Blood Pressure Blood Pressure [Right] O2 Sat by Pulse 89 90 93 Oximetry 10/14/20 10/14/20 10/14/20 06:16 06:20 06:21 Temperature Pulse Rate 72 71 66 Respiratory Rate Blood Pressure Blood Pressure [Right] O2 Sat by Pulse 99 93 96 Oximetry 10/14/20 10/14/20 06:26 06:31 Temperature Pulse Rate 72 65 Respiratory Rate Blood Pressure Blood Pressure [Right] O2 Sat by Pulse 98 99 Oximetry - Exam Narrative Exam: laying in bed NAD Abdomen: Present: normal appearance, soft Extremities: normal - Labs Labs: Abnormal Labs 10/10/20 10/11/20 22:15 08:49 WBC 12.5 H RBC 3.22 L Hgb 9.9 L Hct 29.6 L Seg Neutrophils % 78.6 H Seg Neutrophils # 9.8 H POC Glucose 63 L Laboratory Results - last 24 hr 10/11/20 Unknown Coronavirus (PCR) Negative
--- NOTE | 2020-10-14 07:42 | Progress Note ---
Assessment and Plan patient eating breakfast, c/o feeling like she is "in retirement." Encouraged patient to eat lunch in the garden today if weather permits and NSTs are CAT 1 on both babies. Pt denies bleeding, leaking or contractions and reports active fm X 2 babies. A: Mo Mo TIUP at 24 4/7 weeks gestation Mat obesity >40 Abnl 1hgtt during BMZ, 3hGTT after 10/19/2020 BMZ series and NICU consult - completed. [facility] Recommendations: 1. Continue inpt observation , monitor for labor , distress 2. NST q 4hr x 1 hr , continuous if NRFHT 3. Growth scans [id number] , next due 10/25 4. Twice weekly BPP beginning at 28 weeks gestation 5. 3hr GTT 1 week after steroids 6. Delivery at 32 0/7 - 34 0/7 - Patient Problems (1) BMI greater than 40 Onset Date: ~10/13/20 Current Visit: Yes Status: Acute (2) Monochorionic and monoamniotic twin gestation Onset Date: ~10/13/20 Current Visit: Yes Status: Acute Qualifiers: Trimester: second trimester Qualified Code(s): O30.012 - Twin , monochorionic/monoamniotic, second trimester (3) with 24 completed weeks gestation Onset Date: ~10/10/20 Current Visit: Yes Status: Acute (4) Abnormal glucose tolerance affecting , antepartum Onset Date: ~10/13/20 Current Visit: Yes Status: Acute Subjective - Subjective Date of service: 10/14/20 Principal diagnosis: IUP @ 24w4d ,mono-mono twins, IUGR Patient reports: movement normal, no new complaints, no loss of fluid, no vaginal bleeding, no contractions Objective - Vital Signs Vital Signs: Vital Signs - 12hr 10/13/20 10/13/20 10/13/20 19:42 19:47 19:52 Temperature Pulse Rate 73 64 77 Respiratory Rate Blood Pressure Blood Pressure [Right] O2 Sat by Pulse 99 99 99 Oximetry 10/13/20 10/13/20 10/13/20 19:57 20:02 20:07 Temperature Pulse Rate 71 66 70 Respiratory Rate Blood Pressure Blood Pressure [Right] O2 Sat by Pulse 99 100 99 Oximetry 10/13/20 10/13/20 10/13/20 20:12 20:17 20:22 Temperature Pulse Rate 73 69 70 Respiratory Rate Blood Pressure Blood Pressure [Right] O2 Sat by Pulse 99 99 99 Oximetry 10/13/20 10/13/20 10/14/20 20:26 20:51 00:21 Temperature 98.6 F Pulse Rate 71 64 Respiratory 18 Rate Blood Pressure 103/55 Blood Pressure 103/55 [Right] O2 Sat by Pulse 99 Oximetry 10/14/20 10/14/20 10/14/20 00:26 00:30 00:31 Temperature 98.3 F Pulse Rate 65 61 Respiratory Rate Blood Pressure Blood Pressure [Right] O2 Sat by Pulse 99 99 Oximetry 10/14/20 10/14/20 10/14/20 00:36 00:41 00:46 Temperature Pulse Rate 76 65 65 Respiratory Rate Blood Pressure Blood Pressure [Right] O2 Sat by Pulse 98 97 97 Oximetry 10/14/20 10/14/20 10/14/20 00:51 00:56 01:01 Temperature Pulse Rate 69 61 64 Respiratory Rate Blood Pressure Blood Pressure [Right] O2 Sat by Pulse 98 98 98 Oximetry 10/14/20 10/14/20 10/14/20 01:06 01:11 01:16 Temperature Pulse Rate 67 78 69 Respiratory Rate Blood Pressure Blood Pressure [Right] O2 Sat by Pulse 97 99 98 Oximetry 10/14/20 10/14/20 10/14/20 01:21 01:26 01:28 Temperature Pulse Rate 62 68 72 Respiratory Rate Blood Pressure Blood Pressure [Right] O2 Sat by Pulse 98 98 93 Oximetry 10/14/20 10/14/20 10/14/20 01:31 01:34 01:36 Temperature Pulse Rate 65 78 67 Respiratory Rate Blood Pressure Blood Pressure [Right] O2 Sat by Pulse 99 93 97 Oximetry 10/14/20 10/14/20 10/14/20 01:39 01:41 01:46 Temperature Pulse Rate 66 71 74 Respiratory Rate Blood Pressure Blood Pressure [Right] O2 Sat by Pulse 93 98 97 Oximetry 10/14/20 10/14/20 10/14/20 01:51 01:56 02:01 Temperature Pulse Rate 64 65 73 Respiratory Rate Blood Pressure 108/55 Blood Pressure [Right] O2 Sat by Pulse 98 98 Oximetry 10/14/20 10/14/20 10/14/20 05:18 05:31 05:36 Temperature Pulse Rate 54 L 60 63 Respiratory Rate Blood Pressure Blood Pressure [Right] O2 Sat by Pulse 91 99 100 Oximetry 10/14/20 10/14/20 10/14/20 05:41 05:46 05:51 Temperature Pulse Rate 65 58 L 59 L Respiratory Rate Blood Pressure Blood Pressure [Right] O2 Sat by Pulse 99 100 100 Oximetry 10/14/20 10/14/20 10/14/20 05:56 05:57 06:01 Temperature Pulse Rate 67 62 58 L Respiratory Rate Blood Pressure Blood Pressure [Right] O2 Sat by Pulse 95 94 99 Oximetry 10/14/20 10/14/20 10/14/20 06:06 06:09 06:11 Temperature Pulse Rate 60 60 71 Respiratory Rate Blood Pressure Blood Pressure [Right] O2 Sat by Pulse 97 89 90 Oximetry 10/14/20 10/14/20 10/14/20 06:15 06:16 06:20 Temperature Pulse Rate 61 72 71 Respiratory Rate Blood Pressure Blood Pressure [Right] O2 Sat by Pulse 93 99 93 Oximetry 10/14/20 10/14/20 10/14/20 06:21 06:26 06:31 Temperature Pulse Rate 66 72 65 Respiratory Rate Blood Pressure Blood Pressure [Right] O2 Sat by Pulse 96 98 99 Oximetry - Exam Breasts: normal Cardiovascular: Regular rate Lungs: Clear to auscultation, Normal air movement Abdomen: Present: normal appearance, soft Uterus: Present: normal, fundal height above umbilicus FHR: auscultation normal Extremities: normal Deep Tendon Reflex Grade: Normal +2 - Labs Labs: Abnormal Labs 10/10/20 10/11/20 22:15 08:49 WBC 12.5 H RBC 3.22 L Hgb 9.9 L Hct 29.6 L Seg Neutrophils % 78.6 H Seg Neutrophils # 9.8 H POC Glucose 63 L Laboratory Results - last 24 hr 10/11/20 Unknown Coronavirus (PCR) Negative
[2020-10-14 08:14] LABS: Hematocrit 25.4 % (30.3-42.9); Hemoglobin 8.4 gm/dl (10.1-14.3); Mean Corpuscular HGB Conc 33 % (30-34); Mean Corpuscular Volume 92 fl (79-97); Platelet Count 206 K/mm3 (140-440); Red Blood Count 2.77 M/mm3 (3.65-5.03); Red Cell Distribution Width 14.3 % (13.2-15.2)
[2020-10-14] MEDS: PRENATAL VIT27-FE FUMARATE-FOLIC ACID VIT TAB PO SCH (10:17)
[2020-10-14] MEDS: ASPIRIN 81 MG TAB CHEW PO SCH (10:17)
[2020-10-14] MEDS: SENNOSIDES/DOCUSATE SODIUM 8.6/50 MG TAB PO PRN (10:17)
--- NOTE | 2020-10-14 11:35 | Event Note ---
Date: 10/14/20 Strip reviewed, still with difficulty obtaining strip for 1hour with both babies d/t GA and large panniculus. RN attempted for extended period of time to obtained better tracing of both babies however patient refuses further monitoring at this time per RN.
[2020-10-14] MEDS: ONDANSETRON 4 MG/2 ML INJ IV PRN (16:16)
[2020-10-14] MEDS: DOCUSATE SODIUM 100 MG CAP PO PRN (21:35)
--- NOTE | 2020-10-15 07:15 | Progress Note ---
Assessment and Plan Patient sleeping without complaints A: Mo Mo TIUP at 24 5/7 weeks gestation Mat obesity >40 Abnl 1hgtt during BMZ, 3hGTT after 10/19/2020 BMZ series and NICU consult - completed. [facility] Recommendations: 1. Continue inpt observation , monitor for labor , distress 2. NST q 4hr x 1 hr , continuous if NRFHT 3. Growth scans [id number] , next due 10/25 4. Twice weekly BPP beginning at 28 weeks gestation 5. 3hr GTT 1 week after steroids 6. Delivery at 32 0/7 - 34 0/7 - Patient Problems (1) BMI greater than 40 Onset Date: ~10/13/20 Current Visit: Yes Status: Acute (2) Monochorionic and monoamniotic twin gestation Onset Date: ~10/13/20 Current Visit: Yes Status: Acute Qualifiers: Trimester: second trimester Qualified Code(s): O30.012 - Twin , monochorionic/monoamniotic, second trimester (3) with 24 completed weeks gestation Onset Date: ~10/10/20 Current Visit: Yes Status: Acute (4) Abnormal glucose tolerance affecting , antepartum Onset Date: ~10/13/20 Current Visit: Yes Status: Acute (5) Anemia Current Visit: Yes Status: Acute Plan to address problem: FE BID Subjective - Subjective Date of service: 10/15/20 Principal diagnosis: IUP @ 24w5d ,mono-mono twins, IUGR Patient reports: movement normal, no new complaints, no loss of fluid, no vaginal bleeding, no contractions Objective - Vital Signs Vital Signs: Vital Signs - 12hr 10/14/20 10/14/20 10/14/20 19:30 23:10 23:11 Temperature 98.2 F Pulse Rate 82 122 H Respiratory 16 Rate Blood Pressure Blood Pressure 110/60 [Right] O2 Sat by Pulse 90 87 87 Oximetry 10/14/20 10/14/20 10/14/20 23:41 23:46 23:51 Temperature Pulse Rate 92 H 85 Respiratory Rate Blood Pressure Blood Pressure [Right] O2 Sat by Pulse 81 L 99 99 Oximetry 10/14/20 10/15/20 10/15/20 23:56 00:01 00:06 Temperature Pulse Rate 92 H 85 70 Respiratory Rate Blood Pressure Blood Pressure [Right] O2 Sat by Pulse 99 99 99 Oximetry 10/15/20 10/15/20 10/15/20 00:11 00:16 00:21 Temperature Pulse Rate 67 66 71 Respiratory Rate Blood Pressure Blood Pressure [Right] O2 Sat by Pulse 99 99 99 Oximetry 10/15/20 10/15/20 10/15/20 00:26 00:29 00:30 Temperature 98.5 F Pulse Rate 91 H 70 70 Respiratory 16 Rate Blood Pressure 114/53 Blood Pressure 114/53 [Right] O2 Sat by Pulse 99 92 Oximetry 10/15/20 10/15/20 05:56 06:00 Temperature 97.7 F Pulse Rate 64 64 Respiratory 18 Rate Blood Pressure 110/55 Blood Pressure 110/55 [Right] O2 Sat by Pulse 96 Oximetry - Exam Breasts: normal Cardiovascular: Regular rate Lungs: Normal air movement Abdomen: Present: normal appearance, soft Vulva: both: normal Extremities: normal - Labs Labs: Abnormal Labs 10/10/20 10/11/20 10/14/20 22:15 08:49 07:36 WBC 12.5 H 11.2 H RBC 3.22 L 2.77 L Hgb 9.9 L 8.4 L Hct 29.6 L 25.4 L Seg Neutrophils % 78.6 H Seg Neutrophils # 9.8 H POC Glucose 63 L Laboratory Results - last 24 hr 10/14/20 10/14/20 07:36 07:36 WBC 11.2 H RBC 2.77 L Hgb 8.4 L Hct 25.4 L MCV 92 MCH 30 MCHC 33 RDW 14.3 Plt Count 206 Blood Type O POSITIVE Antibody Screen Negative
[2020-10-15] MEDS: FERROUS SULFATE 325 MG TAB PO SCH ×2 (11:40→21:45)
[2020-10-15] MEDS: PRENATAL VIT27-FE FUMARATE-FOLIC ACID VIT TAB PO SCH (11:40)
[2020-10-15] MEDS: ASPIRIN 81 MG TAB CHEW PO SCH (11:41)
--- NOTE | 2020-10-15 11:49 | Ultrasound Report ---
US OB limited INDICATION / CLINICAL INFORMATION: position only. COMPARISON: 10/11/2020 FINDINGS: Twin B position is cephalic. Heart rate is 144. Twin B position is transverse with head maternal left. Heart rate is 159. IMPRESSION: 1. Positions as above. Signer Name: Kirill Borges MD Signed: 10/15/2020 11:44 AM Workstation Name: [id number]
[2020-10-15] MEDS: ACETAMINOPHEN 500 MG TAB PO PRN (15:15)
[2020-10-15] MEDS: ONDANSETRON 4 MG/2 ML INJ IV PRN (15:16)
[2020-10-15] MEDS: DOCUSATE SODIUM 100 MG CAP PO PRN (21:45)
[2020-10-15] MEDS: diphenhydrAMINE 25 MG CAP PO PRN (21:46)
[2020-10-16] MEDS: PRENATAL VIT27-FE FUMARATE-FOLIC ACID VIT TAB PO SCH (10:29)
[2020-10-16] MEDS: ASPIRIN 81 MG TAB CHEW PO SCH (10:29)
[2020-10-16] MEDS: FERROUS SULFATE 325 MG TAB PO SCH ×2 (10:29→22:17)
--- NOTE | 2020-10-16 12:09 | Progress Note ---
Assessment and Plan Pt resting No c/o voiced States she needs a nap because she was awake alot last night. Reports good FM X 2 Will continue POC as ordered. Pt was seen by Dr Acosta this AM. A: Mo Mo TIUP at 24 6/7 weeks gestation Growth 10/11 Twin A 786gm EFW: 88% breech , twin B 686 gm EFW 50% transverse AMA -low risk NIPT Mat obesity >40 Abnl RGS S/p BMZ and NICU consult Rec: 1. Continue inpt observation , monitor for labor , distress 2. NST q 4hr x 1 hr , continuous if NRFHT 3. Growth scans [id number] , next due 10/25 4. Twice weekly BPP beginning at 28 weeks gestation 5. 3hr GTT 1 week after steroids: 3hr omayra for 10-20- 6. Delivery at 32 0/7 - 34 0/7 - Patient Problems (1) Monochorionic and monoamniotic twin gestation Onset Date: ~10/13/20 Current Visit: Yes Status: Acute Qualifiers: Trimester: second trimester Qualified Code(s): O30.012 - Twin , monochorionic/monoamniotic, second trimester (2) 24 weeks gestation of Current Visit: Yes Status: Acute (3) Abnormal glucose tolerance affecting , antepartum Onset Date: ~10/13/20 Current Visit: Yes Status: Acute (4) BMI greater than 40 Onset Date: ~10/13/20 Current Visit: Yes Status: Acute (5) Single artery and vein of umbilical cord Onset Date: ~10/13/20 Current Visit: Yes Status: Acute Subjective - Subjective Date of service: 10/16/20 (pt in good spirits No c/o voiced) Principal diagnosis: IUP @ 24w6d ,mono-mono twins, IUGR Patient reports: movement normal, no new complaints, no loss of fluid, no vaginal bleeding, no contractions Objective - Vital Signs Vital Signs: Vital Signs - 12hr 10/16/20 10/16/20 10/16/20 00:20 01:27 03:42 Temperature 98.6 F Pulse Rate 59 L 62 Blood Pressure 117/56 102/55 O2 Sat by Pulse Oximetry 10/16/20 10/16/20 10/16/20 03:46 09:00 09:06 Temperature 98.0 F 98.3 F Pulse Rate 65 Blood Pressure O2 Sat by Pulse 91 Oximetry 10/16/20 10/16/20 10/16/20 09:07 09:11 09:16 Temperature Pulse Rate 67 67 65 Blood Pressure 122/58 O2 Sat by Pulse 100 100 Oximetry 10/16/20 10/16/20 10/16/20 09:21 09:26 09:31 Temperature Pulse Rate 67 69 72 Blood Pressure O2 Sat by Pulse 100 100 100 Oximetry 10/16/20 10/16/20 10/16/20 09:36 09:41 09:46 Temperature Pulse Rate 68 65 66 Blood Pressure O2 Sat by Pulse 100 100 100 Oximetry 10/16/20 10/16/20 10/16/20 09:51 09:56 10:01 Temperature Pulse Rate 66 62 64 Blood Pressure O2 Sat by Pulse 100 100 100 Oximetry 10/16/20 10/16/20 10/16/20 10:06 10:11 10:16 Temperature Pulse Rate 70 68 65 Blood Pressure O2 Sat by Pulse 100 100 100 Oximetry 10/16/20 10:21 Temperature Pulse Rate 67 Blood Pressure O2 Sat by Pulse 100 Oximetry - Exam Breasts: deferred Cardiovascular: Regular rate Lungs: Normal air movement Abdomen: Present: normal appearance, soft. Absent: distention, tenderness Uterus: Present: normal FHR: auscultation normal Uterine Contraction Monitor Mode: External Uterine Contraction Pattern: Absent Extremities: normal Deep Tendon Reflex Grade: Normal +2 - Labs Labs: Abnormal Labs 10/10/20 10/11/20 10/14/20 22:15 08:49 07:36 WBC 12.5 H 11.2 H RBC 3.22 L 2.77 L Hgb 9.9 L 8.4 L Hct 29.6 L 25.4 L Seg Neutrophils % 78.6 H Seg Neutrophils # 9.8 H POC Glucose 63 L
--- NOTE | 2020-10-16 14:54 | Progress Note ---
Assessment and Plan A: Mo Mo TIUP at 24 6/7 weeks gestation Growth 10/11 Twin A 786gm hadlock 88% breech , twin B 686 gm hadlock 50% transverse AMA -low risk NIPT Mat obesity >40 Abnl RGS S/p BMZ and NICU consult Rec: 1. Continue inpt observation , monitor for labor , distress 2. NST q 4hr x 1 hr , continuous if NRFHT 3. Growth scans [id number] , next due 10/25 4. Twice weekly BPP beginning at 28 weeks gestation 5. 3hr GTT 1 week after steroids 6. Delivery at 32 0 - 34 0/7 Subjective - Subjective Date of service: 10/16/20 Principal diagnosis: IUP @ 24w6d ,mono-mono twins, IUGR Interval history: No complaints. Denies contractions. Good movement x2. Patient reports: movement normal, no new complaints, no loss of fluid, no vaginal bleeding, no contractions Objective - Vital Signs Vital Signs: Vital Signs - 12hr 10/16/20 10/16/20 10/16/20 03:42 03:46 09:00 Temperature 98.0 F 98.3 F Pulse Rate 62 Blood Pressure 102/55 O2 Sat by Pulse Oximetry 10/16/20 10/16/20 10/16/20 09:06 09:07 09:11 Temperature Pulse Rate 65 67 67 Blood Pressure 122/58 O2 Sat by Pulse 91 100 Oximetry 10/16/20 10/16/20 10/16/20 09:16 09:21 09:26 Temperature Pulse Rate 65 67 69 Blood Pressure O2 Sat by Pulse 100 100 100 Oximetry 10/16/20 10/16/20 10/16/20 09:31 09:36 09:41 Temperature Pulse Rate 72 68 65 Blood Pressure O2 Sat by Pulse 100 100 100 Oximetry 10/16/20 10/16/20 10/16/20 09:46 09:51 09:56 Temperature Pulse Rate 66 66 62 Blood Pressure O2 Sat by Pulse 100 100 100 Oximetry 10/16/20 10/16/20 10/16/20 10:01 10:06 10:11 Temperature Pulse Rate 64 70 68 Blood Pressure O2 Sat by Pulse 100 100 100 Oximetry 10/16/20 10/16/20 10:16 10:21 Temperature Pulse Rate 65 67 Blood Pressure O2 Sat by Pulse 100 100 Oximetry - Exam Abdomen: Present: soft - Labs Labs: Abnormal Labs 10/10/20 10/11/20 10/14/20 22:15 08:49 07:36 WBC 12.5 H 11.2 H RBC 3.22 L 2.77 L Hgb 9.9 L 8.4 L Hct 29.6 L 25.4 L Seg Neutrophils % 78.6 H Seg Neutrophils # 9.8 H POC Glucose 63 L
[2020-10-16] MEDS: diphenhydrAMINE 25 MG CAP PO PRN (20:57)
[2020-10-16] MEDS: SENNOSIDES/DOCUSATE SODIUM 8.6/50 MG TAB PO PRN (22:18)
--- NOTE | 2020-10-17 08:55 | Progress Note ---
Assessment and Plan Pt c/o constipation Will order stool softner. VSS Reports good FM from both babies Assement and plan from Dr Acosta noted below. Dr Mccarthy aware P: Continue POC as noted Assessments ordered A: Mo Mo TIUP at 25w0d weeks gestation Growth 10/11 Twin A 786gm EFW88% breech , twin B 686 gm EFW 50% transverse AMA -low risk NIPT Mat obesity >40 Abnl RGS S/p BMZ and NICU consult Rec: 1. Continue inpt observation , monitor for labor , distress 2. NST q 4hr x 1 hr , continuous if NRFHT 3. Growth scans [id number] , next due 10/25 4. Twice weekly BPP beginning at 28 weeks gestation 5. 3hr GTT 1 week after steroids 10-20-20 6. Delivery at 32 0 - 34 0 - Patient Problems (1) Monochorionic and monoamniotic twin gestation Onset Date: ~10/13/20 Current Visit: Yes Status: Acute Qualifiers: Trimester: second trimester Qualified Code(s): O30.012 - Twin , monochorionic/monoamniotic, second trimester (2) 24 weeks gestation of Current Visit: Yes Status: Acute (3) Abnormal glucose tolerance affecting , antepartum Onset Date: ~10/13/20 Current Visit: Yes Status: Acute (4) BMI greater than 40 Onset Date: ~10/13/20 Current Visit: Yes Status: Acute (5) Single artery and vein of umbilical cord Onset Date: ~10/13/20 Current Visit: Yes Status: Acute Subjective - Subjective Date of service: 10/17/20 (sleepy No c/o voiced) Principal diagnosis: IUP @ 25w0dd ,mono-mono twins, IUGR Patient reports: movement normal, no new complaints, no loss of fluid, no vaginal bleeding, no contractions Objective - Vital Signs Vital Signs: Vital Signs - 12hr 10/16/20 10/16/20 10/16/20 21:00 21:39 21:40 Temperature 98.5 F Pulse Rate 59 L 67 Respiratory 18 Rate Blood Pressure 117/58 Blood Pressure [Right] O2 Sat by Pulse 90 Oximetry 10/17/20 10/17/20 10/17/20 02:00 02:26 07:36 Temperature 98.2 F Pulse Rate 71 61 Respiratory 16 Rate Blood Pressure 101/53 98/55 Blood Pressure [Right] O2 Sat by Pulse Oximetry 10/17/20 07:37 Temperature 98.5 F Pulse Rate 61 Respiratory 20 Rate Blood Pressure Blood Pressure 98/55 [Right] O2 Sat by Pulse Oximetry - Exam Breasts: deferred Cardiovascular: Regular rate Lungs: Normal air movement Abdomen: Present: normal appearance, soft. Absent: distention, tenderness Uterus: Present: normal FHR: auscultation normal, category 1 Uterine Contraction Monitor Mode: External Uterine Contraction Pattern: Absent Extremities: normal Deep Tendon Reflex Grade: Normal +2 - Labs Labs: Abnormal Labs 10/10/20 10/11/20 10/14/20 22:15 08:49 07:36 WBC 12.5 H 11.2 H RBC 3.22 L 2.77 L Hgb 9.9 L 8.4 L Hct 29.6 L 25.4 L Seg Neutrophils % 78.6 H Seg Neutrophils # 9.8 H POC Glucose 63 L
[2020-10-17] MEDS: PRENATAL VIT27-FE FUMARATE-FOLIC ACID VIT TAB PO SCH (11:05)
[2020-10-17] MEDS: FERROUS SULFATE 325 MG TAB PO SCH (11:05)
[2020-10-17] MEDS: ASPIRIN 81 MG TAB CHEW PO SCH (11:06)
[2020-10-17] MEDS: ACETAMINOPHEN 500 MG TAB PO PRN (11:51)
[2020-10-17] MEDS: DOCUSATE SODIUM 100 MG CAP PO PRN (11:51)
[2020-10-18] MEDS: diphenhydrAMINE 50 MG CAP PO PRN (00:20)
[2020-10-18] MEDS: FERROUS SULFATE 325 MG TAB PO SCH ×2 (00:24→09:54)
--- NOTE | 2020-10-18 07:50 | Progress Note ---
Assessment and Plan A: 35 y.op. mono-mono twins @ 25.1 wks, with IUGR. P: Continue with antepartum care. - Patient Problems (1) with 24 completed weeks gestation Onset Date: ~10/10/20 Current Visit: Yes Status: Acute Plan to address problem: Continue with monitoring for 1 hour on EFM q 4 hours. Continue to observe for s/sx of labor. (2) Monochorionic and monoamniotic twin gestation Onset Date: ~10/13/20 Current Visit: Yes Status: Acute Qualifiers: Trimester: second trimester Qualified Code(s): O30.012 - Twin , monochorionic/monoamniotic, second trimester Plan to address problem: EFM and continue to observe for s/sx of labor. (3) Advanced maternal age in multigravida Current Visit: No Status: Acute Qualifiers: Trimester: second trimester Qualified Code(s): O09.522 - Supervision of elderly multigravida, second trimester Subjective - Subjective Date of service: 10/18/20 (Pt doing well.) Principal diagnosis: IUP @ 25w1dd ,mono-mono twins, IUGR Interval history: Pt is 24.1 wks here for admission for mono-mono twins. Will have surveillance and delivery recommended between 32-34 wks gestation. Past History : 8 Term Births: 3 Premature Births: 1 Living Children: 4 Para: 4 Mult. Births: 0 Prev : 1 Prev. attempt? none Aborta: 3 Elect. Ab: 0 Spont. Ab: 3 Ectopics: 0 # 1 Delivery date: 2001 Weeks Gestation: 8 Delivery type: SAB Comments: D&C done # 2 Delivery date: 11/20/2002 Weeks Gestation: 35 labor: no Delivery type: Hours of labor: 18 Anesthesia type: epidural Delivery location: [place] Sex: Female weight: 5-13 Name: Елена Comments: Labor induction for pre-eclampsia # 3 Delivery date: 11/12/2003 Weeks Gestation: 37 labor: no Delivery type: Hours of labor: 8 Anesthesia type: IV Delivery location: [place] Infant Sex: Male weight: 6-13 Name: Luiz # 4 Delivery date: 10/09/2005 Weeks Gestation: 38 labor: no Delivery type: Hours of labor: 8 Anesthesia type: epidural Delivery location: [place] Infant Sex: Male weight: 6-9 Name: Radha # 5 Delivery date: 2007 Weeks Gestation: 4-6 Delivery type: SAB Comments: No D&C # 6 Delivery date: 08/31/2009 Weeks Gestation: 37 Delivery type: Anesthesia type: epidural Delivery location: [place] Sex: Male weight: 6-7 Name: Eliot Comments: Failed induction pre-eclampsia Failure of descent # 7 Delivery date: 04/21/2018 Weeks Gestation: 18 Delivery type: Vaginal Anesthesia type: IV medication Delivery location: Infant Sex: male Name: Hany Comments: Inevitable ; fibroids, CF carrier, abnml Quad screen Risk Factors: Smoked Tobacco Use: Current every day smoker Cigarettes: Yes Smokeless Tobacco Use: Never Counseled to quit/cut down: yes Passive smoke exposure: no Drug use: no HIV high-risk behavior: no Alcohol use: no Exercise: no Seatbelt use: 100 % Sun Exposure: rarely Family History Risk Factors: Family History of CT in females < 65 years old: no Dietary Counseling: pn yes Previous Alcohol Use: Signed On 06/27/2018 Alcohol use: yes Drinks per day: 1 Exercise: no Seatbelt use: 100 % Past Medical History: Reviewed history from 02/04/2018 and no changes required: Negative Past Medical History Past Surgical History: Reviewed history from 02/18/2018 and no changes required: negative Past Medical History Anesthesia Complications: negative Anemia: positive, Before and after delivery Autoimmune Disorder: negative Bleeding Disorder: negative Blood Transfusions: negative Breast Disease: negative Diabetes: negative Heart Disease: negative Hypertension: negative Hepatitis/Liver Disease: negative Kidney Disease/UTI: negative Neurologic/Epilepsy/Migraines: negative Phlebitis/Varicosities: negative Psychiatric: negative Pulmonary Disease/Asthma: negative Thyroid Disease: negative Hospitalizations: negative 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 of genital herpes: no Partner hx. of genital herpes: no Rash, Viral, or Febrile illness since last LMP? no Varicella/Chicken Pox Status: Previous Disease TB Risk: no Genetic History ADVANCED MATERNAL AGE Congenital Heart Defect: Mom: no Dad: no Daisha Disease: Mom: no Dad: no Thalassemia Mom: no Dad: no Neural Tube Defect Mom: no Dad: no Down's Syndrome Mom: yes Dad: no Comments: last tested positive for DS Pastor-Sachs Mom: no Dad: no Sickle Cell Disease/Trait Mom: no Dad: no Hemophilia Mom: no Dad: no Muscular Dystrophy Mom: no Dad: no Cystic Fibrosis Mom: no Dad: no [place] Chorea Mom: no Dad: no Mental Retardation Mom: no Dad: no Fragile X Mom: no Dad: no Other Genetic/Chromosomal Disorder Mom: no Dad: no Child w/other defect Mom: no Dad: no Enviromental Exposures Xray Exposure: no Medication, drug, or alcohol use since LMP: no Chemical/Other Exposure: no Exposure to Cat Liter: no Hx of Parvovirus (Fifth Disease): no Occupational Exposure to Children: none Active Medications (reviewed today): LOTRISONE 1-0.05 % EXTERNAL CREAM (Clotrimazole-Betamethasone) Apply to area twice daily as needed PLUS/IRON 27-1 MG ORAL TABLET ( VIT-FE FUMARATE-FA) 1 po q day as directed ONE-A-DAY WOMENS 1 28-0.8-235 MG ORAL CAPSULE (PRENAT-FE [id number] 3) Current Allergies (reviewed today): * CATS (Critical) * MOLDS (Critical) LORTAB (Critical) * DOGS (Critical) Patient reports: movement normal, no new complaints, no loss of fluid, no vaginal bleeding, no contractions Objective - Vital Signs Vital Signs: Vital Signs - 12hr 10/17/20 10/17/20 10/17/20 21:13 21:22 23:10 Temperature 98.7 F Pulse Rate 83 O2 Sat by Pulse 86 0 L Oximetry 10/18/20 03:25 Temperature 98.2 F Pulse Rate O2 Sat by Pulse Oximetry - Exam Narrative Exam: Pt asked if babies can be monitored one at a time for 30 minutes each. States that there is some frustration with keeping both babies monitored for 1 hour. Will speak with team regarding pt request. Pt also made aware that she will be NPO on the night of 10/19 so that the 3 hr gtt can be completed. Denies vag bleeding, LOF, ctxs. Breasts: deferred Cardiovascular: Regular rate Lungs: Normal air movement Abdomen: Present: normal appearance, soft Vulva: both: normal Uterus: Present: normal FHR: category 1 (Appropriate for gestational age. ) Uterine Contraction Monitor Mode: External Uterine Contraction Pattern: Absent Uterine Tone Measurement Phase: Resting Extremities: normal Deep Tendon Reflex Grade: Normal +2 - Labs Labs: Abnormal Labs 10/10/20 10/11/20 10/14/20 22:15 08:49 07:36 WBC 12.5 H 11.2 H RBC 3.22 L 2.77 L Hgb 9.9 L 8.4 L Hct 29.6 L 25.4 L Seg Neutrophils % 78.6 H Seg Neutrophils # 9.8 H POC Glucose 63 L
[2020-10-18] MEDS: ASPIRIN 81 MG TAB CHEW PO SCH (09:54)
[2020-10-18] MEDS: PRENATAL VIT27-FE FUMARATE-FOLIC ACID VIT TAB PO SCH (09:54)
[2020-10-18] MEDS: ACETAMINOPHEN 500 MG TAB PO PRN (14:07)
--- NOTE | 2020-10-18 17:39 | Progress Note ---
Assessment and Plan A: Mo Mo TIUP at 25 1/7 weeks gestation Growth 10/11 Twin A 786gm hadlock 88% , twin B 686 gm hadlock 50% AMA -low risk NIPT Mat obesity >40 Abnl RGS S/p BMZ and NICU consult Rec: 1. Continue inpt observation , monitor for labor , distress 2. NST q 4hr x 1 hr , continuous if NRFHT 3. Growth scans [id number] , next due 10/25 4. Limited US weekly to assess GRABIEL , then start twice weekly BPP beginning at 28 weeks gestation 5. 3hr GTT 1 week after steroids 6. Delivery at 32 0/7 - 34 0/7 Subjective - Subjective Principal diagnosis: IUP @ 25w1dd ,mono-mono twins Interval history: No complaints Denied bleeding, contractions , or LOF Patient reports: movement normal, no new complaints, no loss of fluid, no vaginal bleeding, no contractions Objective - Vital Signs Vital Signs: Vital Signs - 12hr 10/18/20 10/18/20 10/18/20 09:20 09:25 09:30 Temperature Pulse Rate 72 75 75 Blood Pressure O2 Sat by Pulse 99 100 100 Oximetry 10/18/20 10/18/20 10/18/20 09:35 09:40 12:16 Temperature 98.9 F Pulse Rate 71 67 Blood Pressure O2 Sat by Pulse 100 100 Oximetry 10/18/20 10/18/20 10/18/20 14:09 14:10 14:14 Temperature Pulse Rate 71 63 Blood Pressure O2 Sat by Pulse 87 100 100 Oximetry 10/18/20 10/18/20 10/18/20 14:19 14:24 14:29 Temperature Pulse Rate 61 72 65 Blood Pressure O2 Sat by Pulse 100 100 100 Oximetry 10/18/20 10/18/20 10/18/20 14:34 14:39 14:41 Temperature Pulse Rate 65 68 74 Blood Pressure O2 Sat by Pulse 100 100 84 Oximetry 10/18/20 10/18/20 10/18/20 14:44 14:49 14:54 Temperature Pulse Rate 65 69 71 Blood Pressure O2 Sat by Pulse 100 100 100 Oximetry 10/18/20 14:55 Temperature 98.8 F Pulse Rate 70 Blood Pressure 106/52 O2 Sat by Pulse Oximetry - Labs Labs: Abnormal Labs 10/10/20 10/11/20 10/14/20 22:15 08:49 07:36 WBC 12.5 H 11.2 H RBC 3.22 L 2.77 L Hgb 9.9 L 8.4 L Hct 29.6 L 25.4 L Seg Neutrophils % 78.6 H Seg Neutrophils # 9.8 H POC Glucose 63 L - Results US- obstetric: report reviewed (US 10/15 for presentation , no comment made about GRABIEL ,unable to see images )
--- NOTE | 2020-10-19 07:52 | Progress Note ---
Assessment and Plan - Patient Problems (1) Monochorionic and monoamniotic twin gestation Onset Date: ~10/13/20 Current Visit: Yes Status: Acute Qualifiers: Trimester: second trimester Qualified Code(s): O30.012 - Twin , monochorionic/monoamniotic, second trimester Plan to address problem: q4hr monitoring for at least 1 hour, cont EFM for cat 2 tracing. Steroids completed 10/11 and 10/12. growth scan q2 weeks Next growth 10/25/20. Limited ultrasound weekly to assess GRABIEL. BPP twice a week starting 28 weeks Delivery recommended between 32.0-34.0 weeks (2) Abnormal glucose tolerance affecting , antepartum Onset Date: ~10/13/20 Current Visit: Yes Status: Acute Plan to address problem: Patient will need 3 hour GTT 1 week after the second dose of steroids, on or after 10/19. (3) BMI greater than 40 Onset Date: ~10/13/20 Current Visit: Yes Status: Acute (4) AMA (advanced maternal age) multigravida 35+ Onset Date: ~10/13/20 Current Visit: No Status: Acute Plan to address problem: Low risk NIPT (5) Single artery and vein of umbilical cord Onset Date: ~10/13/20 Current Visit: Yes Status: Acute Plan to address problem: [place] echocardiogram performed on 09/29 was technically difficult. echocardiogram is recommended if clinically indicated. (6) 25 weeks gestation of Current Visit: Yes Status: Acute Subjective - Subjective Principal diagnosis: IUP @ 25w1dd ,mono-mono twins Patient reports: movement normal, no new complaints, no loss of fluid, no vaginal bleeding, no contractions Objective - Vital Signs Vital Signs: Vital Signs - 12hr 10/18/20 10/18/20 10/18/20 20:03 20:08 20:13 Pulse Rate 65 68 66 Blood Pressure O2 Sat by Pulse 99 99 99 Oximetry 10/18/20 10/18/20 10/18/20 20:18 20:23 20:28 Pulse Rate 72 69 67 Blood Pressure O2 Sat by Pulse 98 98 99 Oximetry 10/18/20 10/18/20 10/18/20 20:33 20:38 20:43 Pulse Rate 69 82 79 Blood Pressure O2 Sat by Pulse 98 97 99 Oximetry 10/18/20 10/18/2020 20:48 20:50 20:51 Pulse Rate 84 73 70 Blood Pressure 108/56 O2 Sat by Pulse 99 99 Oximetry 10/19/20 07:41 Pulse Rate 69 Blood Pressure 112/55 O2 Sat by Pulse Oximetry - Exam Abdomen: Present: soft (No EFM yet this morning) Extremities: normal (No calf tenderness) - Labs Labs: Abnormal Labs 10/10/20 10/11/20 10/14/20 22:15 08:49 07:36 WBC 12.5 H 11.2 H RBC 3.22 L 2.77 L Hgb 9.9 L 8.4 L Hct 29.6 L 25.4 L Seg Neutrophils % 78.6 H Seg Neutrophils # 9.8 H POC Glucose 63 L
--- NOTE | 2020-10-19 08:55 | Progress Note ---
Assessment and Plan - Patient Problems (1) with 24 completed weeks gestation Onset Date: ~10/10/20 Current Visit: Yes Status: Resolved (2) Monochorionic and monoamniotic twin gestation Onset Date: ~10/13/20 Current Visit: Yes Status: Acute Qualifiers: Trimester: second trimester Qualified Code(s): O30.012 - Twin , monochorionic/monoamniotic, second trimester Plan to address problem: q4hr monitoring for at least 1 hour, cont EFM for cat 2 tracing. Steroids completed 10/11 and 10/12. growth scan q2 weeks Next growth 10/25/20. Limited ultrasound weekly to assess GRABIEL. BPP twice a week starting 28 weeks Delivery recommended between 32.0-34.0 weeks (3) Advanced maternal age in multigravida Current Visit: No Status: Chronic Qualifiers: Trimester: second trimester Qualified Code(s): O09.522 - Supervision of elderly multigravida, second trimester (4) Abnormal glucose tolerance affecting , antepartum Onset Date: ~10/13/20 Current Visit: Yes Status: Acute Plan to address problem: Will need to complete 3 hr gtt 1 week after second dose of steroids. 3 hr gtt ordered. Subjective - Subjective Date of service: 10/19/20 (Pt states doing well. ) Principal diagnosis: IUP @ 25w1dd ,mono-mono twins Interval history: Pt is 24.1 wks here for admission for mono-mono twins. Will have surveillance and delivery recommended between 32-34 wks gestation. Past History : 8 Term Births: 3 Premature Births: 1 Living Children: 4 Para: 4 Mult. Births: 0 Prev : 1 Prev. attempt? none Aborta: 3 Elect. Ab: 0 Spont. Ab: 3 Ectopics: 0 # 1 Delivery date: 2001 Weeks Gestation: 8 Delivery type: SAB Comments: D&C done # 2 Delivery date: 11/20/2002 Weeks Gestation: 35 labor: no Delivery type: Hours of labor: 18 Anesthesia type: epidural Delivery location: [place] Sex: Female weight: 5-13 Name: Елена Comments: Labor induction for pre-eclampsia # 3 Delivery date: 11/12/2003 Weeks Gestation: 37 labor: no Delivery type: Hours of labor: 8 Anesthesia type: IV Delivery location: [place] Sex: Male weight: 6-13 Name: Luiz # 4 Delivery date: 10/09/2005 Weeks Gestation: 38 labor: no Delivery type: Hours of labor: 8 Anesthesia type: epidural Delivery location: [place] Infant Sex: Male weight: 6-9 Name: Radha # 5 Delivery date: 2007 Weeks Gestation: 4-6 Delivery type: SAB Comments: No D&C # 6 Delivery date: 08/31/2009 Weeks Gestation: 37 Delivery type: Anesthesia type: epidural Delivery location: [place] Infant Sex: Male weight: 6-7 Name: Eliot Comments: Failed induction pre-eclampsia Failure of descent # 7 Delivery date: 04/21/2018 Weeks Gestation: 18 Delivery type: Vaginal Anesthesia type: IV medication [facility] Sex: male Name: Hany Comments: Inevitable ; fibroids, CF carrier, abnml Quad screen Risk Factors: Smoked Tobacco Use: Current every day smoker Cigarettes: Yes Smokeless Tobacco Use: Never Counseled to quit/cut down: yes Passive smoke exposure: no Drug use: no HIV high-risk behavior: no Alcohol use: no Exercise: no Seatbelt use: 100 % Sun Exposure: rarely Family History Risk Factors: Family History of MT in females < 65 years old: no Dietary Counseling: pn yes Previous Alcohol Use: Signed On 06/27/2018 Alcohol use: yes Drinks per day: 1 Exercise: no Seatbelt use: 100 % Past Medical History: Reviewed history from 02/04/2018 and no changes required: Negative Past Medical History Past Surgical History: Reviewed history from 02/18/2018 and no changes required: negative Past Medical History Anesthesia Complications: negative Anemia: positive, Before and after delivery Autoimmune Disorder: negative Bleeding Disorder: negative Blood Transfusions: negative Breast Disease: negative Diabetes: negative Heart Disease: negative Hypertension: negative Hepatitis/Liver Disease: negative Kidney Disease/UTI: negative Neurologic/Epilepsy/Migraines: negative Phlebitis/Varicosities: negative Psychiatric: negative Pulmonary Disease/Asthma: negative Thyroid Disease: negative Hospitalizations: negative 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 of genital herpes: no Partner hx. of genital herpes: no Rash, Viral, or Febrile illness since last LMP? no Varicella/Chicken Pox Status: Previous Disease TB Risk: no Genetic History ADVANCED MATERNAL AGE Congenital Heart Defect: Mom: no Dad: no Daisha Disease: Mom: no Dad: no Thalassemia Mom: no Dad: no Neural Tube Defect Mom: no Dad: no Down's Syndrome Mom: yes Dad: no Comments: last tested positive for DS Pastor-Sachs Mom: no Dad: no Sickle Cell Disease/Trait Mom: no Dad: no Hemophilia Mom: no Dad: no Muscular Dystrophy Mom: no Dad: no Cystic Fibrosis Mom: no Dad: no [place] Chorea Mom: no Dad: no Mental Retardation Mom: no Dad: no Fragile X Mom: no Dad: no Other Genetic/Chromosomal Disorder Mom: no Dad: no Child w/other defect Mom: no Dad: no Enviromental Exposures Xray Exposure: no Medication, drug, or alcohol use since LMP: no Chemical/Other Exposure: no Exposure to Cat Liter: no Hx of Parvovirus (Fifth Disease): no Occupational Exposure to Children: none Active Medications (reviewed today): LOTRISONE 1-0.05 % EXTERNAL CREAM (Clotrimazole-Betamethasone) Apply to area twice daily as needed PLUS/IRON 27-1 MG ORAL TABLET ( VIT-FE FUMARATE-FA) 1 po q day as directed ONE-A-DAY WOMENS 1 28-0.8-235 MG ORAL CAPSULE (PRENAT-FE [id number] 3) Current Allergies (reviewed today): * CATS (Critical) * MOLDS (Critical) LORTAB (Critical) * DOGS (Critical) Patient reports: movement normal, no new complaints, no loss of fluid, no vaginal bleeding, no contractions Objective - Vital Signs Vital Signs: Vital Signs - 12hr 10/19/20 07:41 Temperature 98.4 F Pulse Rate 66 Respiratory 16 Rate Blood Pressure 112/55 Blood Pressure 112/55 [Right] O2 Sat by Pulse 98 Oximetry - Exam Narrative Exam: Pt doing well at this time. Denies vaginal bleeding, LOF, ctxs. FM positive X 2. In good spirits this AM. Breasts: deferred Cardiovascular: Regular rate Lungs: Normal air movement Abdomen: Present: normal appearance, soft Vulva: both: normal Uterus: Present: normal FHR: other (Appropriate for gestational age X 2. ) Uterine Contraction Monitor Mode: External Uterine Contraction Pattern: Absent Extremities: normal Deep Tendon Reflex Grade: Normal but brisk +3 - Labs Labs: Abnormal Labs 10/10/20 10/11/20 10/14/20 22:15 08:49 07:36 WBC 12.5 H 11.2 H RBC 3.22 L 2.77 L Hgb 9.9 L 8.4 L Hct 29.6 L 25.4 L Seg Neutrophils % 78.6 H Seg Neutrophils # 9.8 H POC Glucose 63 L
[2020-10-19] MEDS: FERROUS SULFATE 325 MG TAB PO SCH (10:00)
[2020-10-19] MEDS: PRENATAL VIT27-FE FUMARATE-FOLIC ACID VIT TAB PO SCH (10:01)
[2020-10-19] MEDS: ASPIRIN 81 MG TAB CHEW PO SCH (10:01)
[2020-10-19] MEDS: DOCUSATE SODIUM 100 MG CAP PO PRN (10:03)
--- NOTE | 2020-10-19 14:26 | Event Note ---
Date: 10/19/20 s/w Miguel Miller, Director [facility], who states resources are not available to appropriately monitor the babies as per [facility] recommendations. She recommends transferring this patient [place] were she has spoken with the Director of Womens services and is willing to accept this patient in transfer if the patient agrees and the attending accepts the patient. Patient informed by Miguel Miller of the limited resources and recommendation to transfer to [place]. She states she will have to think about it for now.
--- NOTE | 2020-10-19 18:33 | Discharge Summary ---
Providers - Providers Date of Admission: 10/10/20 20:42 Date of discharge: 10/19/20 Attending physician: CELSA BAUM 10/11/20 07:00 Consult to Physician [CONS] Routine Comment: Consulting Provider: PO ROQUE Physician Instructions: Reason For Exam: mono/mono twins 10/11/20 10:00 Consult to Dietitian/Nutrition [CONS] Routine Physician Instructions: Reason For Exam: Reason for Consult: Diet education Consult to Physician [CONS] Routine Comment: Consulting Provider: MARTIN MACHUCA Physician Instructions: Reason For Exam: mono/mono twins Primary care physician: CELSA BAUM Hospitalization Condition: Stable Hospital course: This is a 36-year-old female 8 para 3-1-3-4 intrauterine at 25-2/7 weeks gestation who was admitted on October 11 as recommended by [facility] for elective hospitalization due to monochorionic monoamniotic twin gestation. Per the perinatologist recommendation babies are to be monitored for 1 hour every 4 hours. She received 2 doses of betamethasone 24 hours apart on October 11 and October 12. On October 11 prior to receiving steroids she had 1 hour GTT of 155. She was scheduled to have a 3-hour GTT tomorrow. Patient has a body mass index of 42.4 kg/m with a large panniculus that makes monitoring of both babies extremely difficult. She requires one-to-one nursing care and on occasion two nurses and several hours to monitor both babies at one time. Hospital course has otherwise been unremarkable however at this time [facility] director states that resources are not available to appropriately monitor as per recommended by [facility]. The decision was made at this point to transfer patient to [place] for continued care. Disposition: [id number]/TX-[id number] ANOTHER TYPE HLTHCARE - Discharge Diagnoses (1) 25 weeks gestation of Status: Acute (2) Monochorionic and monoamniotic twin gestation Status: Acute Qualifiers: Trimester: second trimester Qualified Code(s): O30.012 - Twin , monochorionic/monoamniotic, second trimester (3) Abnormal glucose tolerance affecting , antepartum Status: Acute (4) Advanced maternal age in multigravida Status: Chronic Qualifiers: Trimester: second trimester Qualified Code(s): O09.522 - Supervision of elderly multigravida, second trimester (5) Anemia Status: Chronic (6) BMI greater than 40 Status: Acute (7) Maternal care due to uterine scar from other previous surgery Status: Acute (8) Smoker Status: Acute Core Measure Documentation - Palliative Care Palliative Care/ Comfort Measures: Not Applicable - Core Measures Any of the following diagnoses?: none Exam - Constitutional Vitals: Temp Pulse Resp BP Pulse Ox 97.8 F 78 18 126/63 100 10/19/20 15:47 10/19/20 18:26 10/19/20 15:47 10/19/20 15:47 10/19/20 18:26 General appearance: Present: no acute distress - Respiratory Respiratory effort: normal - Cardiovascular Rhythm: regular - Extremities Extremities: no ischemia, No edema - Abdominal General gastrointestinal: Present: soft, non-tender - Psychiatric Psychiatric: appropriate mood/affect, intact judgment & insight, memory intact, cooperative - Additional findings Additional findings: FHTs appropriate for gestational age: Twin A 150s twin B 140s No contractions Plan
[2020-10-19] MEDS: ACETAMINOPHEN 500 MG TAB PO PRN (19:33)
[2020-10-19 19:42] VITALS: BP 135/64
== END 2020-10-19 19:44 | disposition short-term general hospital (02) | DRG 781 ==
LOC: LD 20:42
PROVIDERS: ADMIT Obstetrics & Gynecology; ATTEND Obstetrics & Gynecology
DX: O30.012 Twin pregnancy, monochorionic/monoamniotic, second trimester (principal); O99.810 Abnormal glucose complicating pregnancy; O09.522 Supervision of elderly multigravida, second trimester; O99.332 Smoking (tobacco) complicating pregnancy, second trimester; O99.012 Anemia complicating pregnancy, second trimester; O36.5920 Maternal care for other known or suspected poor fetal growth, second trimester, not applicable or unspecified; O99.212 Obesity complicating pregnancy, second trimester; E66.9 Obesity, unspecified; O32.1XX0 Maternal care for breech presentation, not applicable or unspecified; Z3A.25 25 weeks gestation of pregnancy; Q27.0 Congenital absence and hypoplasia of umbilical artery; F17.210 Nicotine dependence, cigarettes, uncomplicated; O34.219 Maternal care for unspecified type scar from previous cesarean delivery; D64.9 Anemia, unspecified; Z88.5 Allergy status to narcotic agent; Z88.0 Allergy status to penicillin; Z20.828 Contact with and (suspected) exposure to other viral communicable diseases; Z88.6 Allergy status to analgesic agent
CPT/HCPCS: 36415; 76815; 76816; 82951; 82962; 85025; 85027; 86592; 86850; 86900; 86901; G0378; J0702; J2405; U0003